=== PATIENT | female | born 1975 | race American Indian/Alaskan Native ===

== ENCOUNTER 2017-08-21 08:01 | Inpatient (IN) | payer OTHER ==
--- NOTE | 2017-08-21 08:44 | XRay Report ---
ROUTINE CHEST, TWO VIEWS: HISTORY: Shortness of breath. The trachea, heart, mediastinal contour, lung heredia and bony thorax are unremarkable. IMPRESSION: Unremarkable chest x-ray.
[2017-08-21 09:13] LABS: Mean Corpuscular HGB Conc 24 % (30-34); Platelet Count 412 K/mm3 (140-440); Red Blood Count 4.58 M/mm3 (3.65-5.03)
[2017-08-21 09:18] LABS: BUN/Creatinine Ratio 28; Blood Urea Nitrogen 22 mg/dL (7-17); Calcium 8.4 mg/dL (8.4-10.2); Hemolysis Index 6
[2017-08-21 09:22] LABS: Hemoglobin 7.4 gm/dl (10.1-14.3)
[2017-08-21 09:23] LABS: Hematocrit 30.7 % (30.3-42.9); Mean Corpuscular Hemoglobin 16 pg (28-32); Mean Corpuscular Volume 67 fl (79-97); Red Cell Distribution Width 21.4 % (13.2-15.2)
[2017-08-21 10:45] LABS: BUN/Creatinine Ratio 31; Blood Urea Nitrogen 22 mg/dL (7-17); Calcium 8.2 mg/dL (8.4-10.2); Hemolysis Index 3
[2017-08-21] MEDS ORDERED: NACL 0.9% 500 ML 500 ML IV ONE (21:30)
--- NOTE | 2017-08-21 21:38 | Emergency Department Report ---
ED Shortness of Breath HPI - General Chief Complaint: Dyspnea/Respdistress Stated Complaint: SOB Time Seen by Provider: 08/21/17 21:18 Source: patient Mode of arrival: Ambulatory Limitations: No Limitations - History of Present Illness Initial Comments: 41-year-old female with a past medical history CHF and hypertension presents to the hospital complaints of shortness of breath 3 days. Dyspnea on exertion with positive fatigue as well. Denies orthopnea or PND. Patient has been noncompliant with her CHF medication. Increased bilateral lower extremity edema. Patient complains of recent URI symptoms with cough productive of clear sputum. Taking [id number] medicine. No complaints of fever. Mild right- sided chest pain that started in the ED related to sleeping position. Patient denies recent travel, history of PE/DVT, and she denies taking control pills currently. Patient denies a known history of iron deficiency or anemia. Currently on mentstral cycle (day 3) uses 6 super pads per day - Related Data Allergies Allergy/AdvReac Type Severity Reaction Status Date / Time No Known Allergies Allergy Verified 08/22/17 02:04 ED Review of Systems ROS: Stated complaint: SOB Other details as noted in HPI Comment: All other systems reviewed and negative Other: Constitutional: No fevers chills Eyes: No eye pain visual changes ENT: No ear pain or throat pain Neck: Denies pain Respiratory: as per phpi Cardiovascular: Denies palpitations, syncope GI: Denies abdominal pain, nausea, vomiting, diarrhea, : Denies dysuria Musculoskeletal: Denies back pain Skin: Denies rash, lesions, erythema Neurologic: Denies headache, numbness, weakness Psychiatric: Denies suicidal ideation, hallucinations ED Past Medical Hx - Past Medical History Previous Medical History?: Yes Hx Hypertension: Yes Hx Congestive Heart Failure: Yes - Surgical History Past Surgical History?: Yes Additional Surgical History: Left knee surgery - Social History Smoking Status: Never Smoker Substance Use Type: Non Opiate Pain, Other ED Physical Exam - General Limitations: No Limitations - Other Other exam information: General: No limitations, patient is alert in no acute distress Head exam: Atraumatic, normocephalic Eyes exam: Normal appearance, pupils equal reactive to light, pale conjunctiva ENT: Moist mucous membrane, normal oropharynx Neck exam: Normal inspection, full range of motion, no meningismus nontender Respiratory exam: Mild tachypnea without accessory muscle use Cardiovascular: Mild tachycardia Abdomen: Soft, nondistended, and nontender, with normal bowel sounds, no rebound, or guarding Extremity: Full range of motion normal inspection no deformity, nonpitting bilateral lower extremity edema. it Back: Normal Inspection, full range of motion, no tenderness Neurologic: Alert, oriented x3, cranial nerves intact, no motor or sensory deficit Psychiatric: normal affect, normal mood Skin: Warm, dry, intact ED Course Vital Signs 08/21/17 08/21/17 08/21/17 08:06 14:28 19:33 Temperature 97.4 F L 98.4 F 98.0 F Pulse Rate 120 H 115 H 121 H Respiratory 22 16 20 Rate Blood Pressure 143/92 147/92 Blood Pressure 161/100 [Right] O2 Sat by Pulse 93 95 94 Oximetry 08/21/17 08/21/17 08/21/17 19:37 23:21 23:31 Temperature Pulse Rate 119 H 114 H Respiratory 20 22 25 H Rate Blood Pressure 118/79 Blood Pressure [Right] O2 Sat by Pulse 94 Oximetry 08/21/17 08/22/17 08/22/17 23:45 00:01 00:15 Temperature Pulse Rate 115 H 116 H 113 H Respiratory 26 H 24 26 H Rate Blood Pressure 118/79 118/79 118/79 Blood Pressure [Right] O2 Sat by Pulse Oximetry 08/22/17 08/22/17 08/22/17 00:31 00:45 01:01 Temperature Pulse Rate 114 H 111 H 114 H Respiratory 26 H 23 26 H Rate Blood Pressure 118/79 118/79 118/79 Blood Pressure [Right] O2 Sat by Pulse Oximetry 08/22/17 01:15 Temperature Pulse Rate 113 H Respiratory 25 H Rate Blood Pressure 131/87 Blood Pressure [Right] O2 Sat by Pulse Oximetry ED Medical Decision Making - Lab Data Result diagrams: 08/21/17 08:45 08/21/17 09:57 Lab Results 08/21/17 08/21/17 08/21/17 Range/Units 08:45 08:45 09:57 WBC 8.9 (4.5-11.0) K/mm3 RBC 4.58 (3.65-5.03) M/mm3 Hgb 7.4 L (10.1-14.3) gm/dl Hct 30.7 (30.3-42.9) % MCV 67 L (79-97) fl MCH 16 L (28-32) pg MCHC 24 L (30-34) % RDW 21.4 H (13.2-15.2) % Plt Count 412 (140-440) K/mm3 Lymph % (Auto) Contracting Manager [place] % (Auto) Contracting Manager Eos % (Auto) Contracting Manager Baso % (Auto) Contracting Manager Lymph # Contracting Manager [place] # Contracting Manager Eos # Contracting Manager Baso # Contracting Manager Seg Neutrophils % Contracting Manager Seg Neutrophils # Contracting Manager PT (12.2-14.9) Sec. INR (0.87-1.13) APTT (24.2-36.6) Sec. D-Dimer (0-234) ng/mlDDU Sodium 143 143 (137-145) mmol/L Potassium 3.9 3.9 (3.6-5.0) mmol/L Chloride 103.9 104.4 (98-107) mmol/L Carbon Dioxide 17 L 20 L (22-30) mmol/L Anion Gap 26 23 mmol/L BUN 22 H 22 H (7-17) mg/dL Creatinine 0.8 0.7 (0.7-1.2) mg/dL Estimated GFR > 60 > 60 ml/min BUN/Creatinine Ratio 28 31 % Glucose 141 H 94 (65-100) mg/dL Calcium 8.4 8.2 L (8.4-10.2) mg/dL Iron (37-170) ug/dL TIBC (250-450) mcg/dL % Saturation % Transferrin (192-382) mg/dl NT-Pro-B Natriuret Pep Cancelled HCG, Qual (Negative) Blood Type Antibody Screen Crossmatch 08/21/17 08/21/17 08/21/17 Range/Units 22:00 22:00 22:00 WBC (4.5-11.0) K/mm3 RBC (3.65-5.03) M/mm3 Hgb (10.1-14.3) gm/dl Hct (30.3-42.9) % MCV (79-97) fl MCH (28-32) pg MCHC (30-34) % RDW (13.2-15.2) % Plt Count (140-440) K/mm3 Lymph % (Auto) [place] % (Auto) Eos % (Auto) Baso % (Auto) Lymph # [place] # Eos # Baso # Seg Neutrophils % Seg Neutrophils # PT 13.9 (12.2-14.9) Sec. INR 1.02 (0.87-1.13) APTT 24.6 (24.2-36.6) Sec. D-Dimer 1471.89 H (0-234) ng/mlDDU Sodium (137-145) mmol/L Potassium (3.6-5.0) mmol/L Chloride (98-107) mmol/L Carbon Dioxide (22-30) mmol/L Anion Gap mmol/L BUN (7-17) mg/dL Creatinine (0.7-1.2) mg/dL Estimated GFR ml/min BUN/Creatinine Ratio % Glucose (65-100) mg/dL Calcium (8.4-10.2) mg/dL Iron 13 L (37-170) ug/dL TIBC 427 (250-450) mcg/dL % Saturation 3.04 % Transferrin 379 (192-382) mg/dl NT-Pro-B Natriuret Pep HCG, Qual Negative (Negative) Blood Type Antibody Screen Crossmatch 08/21/17 Range/Units 22:00 WBC (4.5-11.0) K/mm3 RBC (3.65-5.03) M/mm3 Hgb (10.1-14.3) gm/dl Hct (30.3-42.9) % MCV (79-97) fl MCH (28-32) pg MCHC (30-34) % RDW (13.2-15.2) % Plt Count (140-440) K/mm3 Lymph % (Auto) [place] % (Auto) Eos % (Auto) Baso % (Auto) Lymph # [place] # Eos # Baso # Seg Neutrophils % Seg Neutrophils # PT (12.2-14.9) Sec. INR (0.87-1.13) APTT (24.2-36.6) Sec. D-Dimer (0-234) ng/mlDDU Sodium (137-145) mmol/L Potassium (3.6-5.0) mmol/L Chloride (98-107) mmol/L Carbon Dioxide (22-30) mmol/L Anion Gap mmol/L BUN (7-17) mg/dL Creatinine (0.7-1.2) mg/dL Estimated GFR ml/min BUN/Creatinine Ratio % Glucose (65-100) mg/dL Calcium (8.4-10.2) mg/dL Iron (37-170) ug/dL TIBC (250-450) mcg/dL % Saturation % Transferrin (192-382) mg/dl NT-Pro-B Natriuret Pep HCG, Qual (Negative) Blood Type B POSITIVE Antibody Screen Negative Crossmatch See Detail - EKG Data -: EKG Interpreted by Me (RBBB) EKG shows normal: sinus rhythm, axis (21), QRS complexes (132), ST-T waves (lat t wave inv) Rate: tachycardia (113) - EKG Data When compared to previous EKG there are: previous EKG unavailable - Radiology Data Radiology results: report reviewed read by radiology Chest x-ray read by radiologist, no acute finding CT angiogram chest: extensive bilateral pulmonary emboli involving the lobar and segmental branches of the right lung and segmental branches of the left lung. Mild enlargement of the heart. Probable mild right ventricular strain. No focal consolidation or pleural effusion - Medical Decision Making Shortness of breath likely secondary to 2 contributing factors Pulmonary emboli extensive pulmonary emboli Signs of right heart strain on CT Signs of right bundle branch block on EKG Persistent tachypnea in the ED O2 saturation greater than 93% Lovenox ordered Anemia Currently on menstrual cycle with heavy vaginal bleeding reported but typical of her menstrual cycle Iron level low 2 Units PRBC ordered Plan to admit for further management - Differential Diagnosis anemia, CHF, PE, pneumonia, pneumothorax Critical Care Time: No Critical care attestation.: If time is entered above; I have spent that time in minutes in the direct care of this critically ill patient, excluding procedure time. ED Disposition Clinical Impression: Pulmonary emboli, Iron deficiency anemia, Dyspnea, Right heart enlargement Disposition: OP ADMIT IP TO THIS HOSP Is pt being admited?: Yes Condition: Stable Time of Disposition: 01:58 (Dr Mendoza/hosp)
[2017-08-21 22:48] LABS: % Iron Saturation 3.04 %
[2017-08-21 23:11] LABS: INR 1.02 (0.87-1.13)
[2017-08-21 23:12] LABS: Partial Thromboplastin Time 24.6 Sec. (24.2-36.6)
--- NOTE | 2017-08-22 01:58 | Cat Scan Report ---
FINAL REPORT EXAM: CT ANGIO CHEST HISTORY: sob, anemia, elevated ddimer COMPARISON: None available. TECHNIQUE: Contiguous axial images were obtained. Additional sagittal and coronal reformatted images were obtained. Administration of IV contrast given per institution protocol. Images submitted for interpretation. 100 cc Omnipaque [id number]. FINDINGS: Mild cardiac enlargement. Right ventricle measures 6.7 centimeters in thickness. Left ventricle 6.5 centimeters. Thoracic aorta is normal in caliber. No dissection. Multiple nonocclusive pulmonary emboli involving the lobar and segmental branches of the right upper, middle, and lower lobes. There also emboli involving the segmental branches of the left upper and left lower lobes. No pathologically enlarged intrathoracic or axillary lymph nodes. Tracheobronchial tree is patent. No focal consolidation or pleural effusion. Moderate large hiatal hernia. Bony thorax is grossly intact. IMPRESSION: Extensive bilateral pulmonary emboli involving the lobar and segmental branches the right lung and segmental branches of the left lung. Mild enlargement of the heart. Probable mild right ventricular strain. No focal consolidation or pleural effusion. Findings discussed with Dr. Musa on August 22, 2017 at 0155 hours EST.
[2017-08-22] MEDS ORDERED: LOVENOX SUB-Q ONE (01:59)
[2017-08-22] MEDS ORDERED: NACL 0.9% 1000 ML 1,000 ML ONE (02:00)
[2017-08-22] MEDS ORDERED: HEPARIN 10,000 UNITS/10 ML IV ONE (02:20)
[2017-08-22] MEDS ORDERED: HEPARIN/ 0.45% NACL-25,000 UNIT/500 ML 25,000 UNIT/500 ML BAG ONE (03:31)
[2017-08-22] MEDS ORDERED: HEPARIN 10,000 UNITS/10 ML ONE (03:31)
[2017-08-22] MEDS: HEPARIN/ 0.45% NACL-25,000 UNIT/500 ML 25,000 UNIT/500 ML BAG IV SCH ×2 (03:35→22:23)
[2017-08-22] MEDS ORDERED: MILK OF MAGNESIA PO PRN (04:02)
[2017-08-22] MEDS ORDERED: TYLENOL PO PRN (04:02)
[2017-08-22] MEDS ORDERED: DULCOLAX PR PRN (04:02)
[2017-08-22] MEDS ORDERED: ZOFRAN IV PRN (04:02)
[2017-08-22] MEDS ORDERED: MORPHINE IV PRN (04:02)
--- NOTE | 2017-08-22 04:24 | History and Physical Report ---
History of Present Illness Date of examination: 08/22/17 Date of admission: 08/22/17 03:01 History of present illness: 41-year-old brief history of hypertension, CHF was been off her medication for more than one year comes emergency room with complaints of shortness of breath 3 days, palpitation. She also complained of pain in her mid back, She described as dull pain, intermittent in nature less than 5 minutes, intensity 4/ 10, no radiation and she cannot identify exacerbating or relieving factors. She denies any recent travel, per control use Review Of Systems: Constitutional: no weight loss Ears, eyes, nose, mouth and throat: no nasal congestion, no nasal discharge, no sinus pressure, blurry vision, diplopia Neck: No neck pain or rigidity. Cardiovascular: No chest pain Respiratory: No cough Gastrointestinal: No abdominal pain, hematochezia Genitourinary : no dysuria, frequency , hematuria Musculoskeletal: no muscle ache Integumentary: no rash, no pruritis Neurological: no parathesias, focal weakness Endocrine: no cold or heat intolerance, no polyuria or polydipsia Hematologic/Lymphatic: no easy bruising, no easy bleeding, no gland swelling Allergic/Immunologic: no urticaria, no angioedema. PAST MEDICAL HISTORY:hypertension, CHF PAST SURGICAL HISTORY:knee surgery FAMILY HISTORY:hypertension SOCIAL HISTORY:Denies alcohol, tobacco, drugs Medications and Allergies Allergies Allergy/AdvReac Type Severity Reaction Status Date / Time No Known Allergies Allergy Verified 08/22/17 02:04 Active Meds: Active Medications Acetaminophen (Tylenol) 650 mg PO Q4H PRN PRN Reason: Pain MILD(1-3)/Fever >100.5/PEREZ Bisacodyl (Dulcolax) 10 mg IN QDAY PRN PRN Reason: Constipation unrelieved by MOM Heparin Sodium/Sodium Chloride (Heparin/ 0.45% Nacl-25,000 Unit/500 Ml) 25,000 unit in 500 mls @ 30 mls/hr IV TITR RUBA; 1,500 UNITS/HR PRN Reason: Protocol Last Admin: 08/22/17 03:35 Dose: 1,500 units/hr, 30 mls/hr Magnesium Hydroxide (Milk Of Magnesia) 30 ml PO Q4H PRN PRN Reason: Constipation Morphine Sulfate (Morphine) 2 mg IV Q4H PRN PRN Reason: Pain, Moderate (4-6) Ondansetron HCl (Zofran) 4 mg IV Q8H PRN PRN Reason: N/V unrelieved by Reglan Exam - Physical Exam Narrative exam: Gen. appearance: Patient lying in bed in no acute distress HEENT: Normocephalic/atraumatic, pupils equal round reactive to light, extra occular movement intact, no scleral icterus, no JVD or thyromegaly or nodule, neck is supple, mucous membrane moist, no erythema or exudate Heart: S1-S2, regular rate and rhythm Lungs: Clear to auscultation bilateral breathing comfortable Abdomen: Positive bowel sounds, nontender, nondistended, no organomegaly Extremities: No edema, cyanosis, clubbing Neuro:: Oriented 3 , cranial nerves II-12 intact, speech, motor intact Skin: No rash, nodules, warm dry - Constitutional Vitals: Temp Pulse Resp BP Pulse Ox 97.5 F L 111 H 23 142/94 97 08/22/17 02:13 08/22/17 03:40 08/22/17 03:40 08/22/17 03:40 08/22/17 03:40 Results - Labs CBC & Chem 7: 08/21/17 08:45 08/21/17 09:57 Labs: Abnormal lab results 08/21/17 08/21/17 08/21/17 Range/Units 08:45 08:45 09:57 Hgb 7.4 L (10.1-14.3) gm/dl MCV 67 L (79-97) fl MCH 16 L (28-32) pg MCHC 24 L (30-34) % RDW 21.4 H (13.2-15.2) % D-Dimer (0-234) ng/mlDDU Carbon Dioxide 17 L 20 L (22-30) mmol/L BUN 22 H 22 H (7-17) mg/dL Glucose 141 H (65-100) mg/dL Calcium 8.2 L (8.4-10.2) mg/dL Iron (37-170) ug/dL Crossmatch 08/21/17 08/21/17 08/21/17 Range/Units 22:00 22:00 22:00 Hgb (10.1-14.3) gm/dl MCV (79-97) fl MCH (28-32) pg MCHC (30-34) % RDW (13.2-15.2) % D-Dimer 1471.89 H (0-234) ng/mlDDU Carbon Dioxide (22-30) mmol/L BUN (7-17) mg/dL Glucose (65-100) mg/dL Calcium (8.4-10.2) mg/dL Iron 13 L (37-170) ug/dL Crossmatch See Detail - Imaging and Cardiology EKG: image reviewed CT scan - chest: report reviewed Assessment and Plan Assessment Acute pulmonary emboli Hypertension CHF, chronic Plan Transfuse red blood cells, start heparin drip Monitor hemoglobin, PT/INR check Doppler of the lower extremity
[2017-08-22 12:16] LABS: Mean Corpuscular HGB Conc 29 % (30-34); Platelet Count 290 K/mm3 (140-440); Red Blood Count 4.47 M/mm3 (3.65-5.03)
[2017-08-22 12:23] LABS: Hematocrit 29.4 % (30.3-42.9); Hemoglobin 8.4 gm/dl (10.1-14.3); Mean Corpuscular Hemoglobin 19 pg (28-32); Mean Corpuscular Volume 66 fl (79-97); Red Cell Distribution Width 26.1 % (13.2-15.2)
--- NOTE | 2017-08-22 14:55 | Event Note ---
Date: 08/22/17 Patient seen and examined. Admitted this morning with acute pulmonary emboli. We'll continue heparin drip. We'll do further testing to rule out possible GI bleed as her H&H is low. We'll continue current management and plan as dictated in HPI.
[2017-08-22] MEDS: FEOSOL PO SCH (22:22)
[2017-08-23 06:14] LABS: Mean Corpuscular HGB Conc 29 % (30-34); Platelet Count 277 K/mm3 (140-440); Red Blood Count 4.37 M/mm3 (3.65-5.03)
[2017-08-23 06:22] LABS: Hematocrit 28.3 % (30.3-42.9); Hemoglobin 8.2 gm/dl (10.1-14.3); Mean Corpuscular Hemoglobin 19 pg (28-32); Mean Corpuscular Volume 65 fl (79-97)
[2017-08-23 06:23] LABS: Red Cell Distribution Width 25.6 % (13.2-15.2)
[2017-08-23 06:36] LABS: BUN/Creatinine Ratio 25; Blood Urea Nitrogen 20 mg/dL (7-17); Calcium 7.7 mg/dL (8.4-10.2); Hemolysis Index 8
[2017-08-23 08:00] LABS: Anisocytosis 2+; Band Neutrophils # (Manual) 0.1 K/mm3; Hypochromasia 1+; Ovalocytes Few; Platelet Estimate Consistent w Auto; Target Cells Rare; Total Cells Counted 100
[2017-08-23] MEDS: FEOSOL PO SCH ×2 (12:19→21:27)
--- NOTE | 2017-08-23 13:20 | Progress Note ---
Assessment and Plan Acute b/l pulmonary emboli b/l popletial DVT Hypertension Anemia due to menorrhagia Plan Transfused red blood cells, cont heparin drip, Monitor hemoglobin, PT/INR, start coumadin consult pulmonary, if need SCD need hypercoagulable workup, will consult hematology Subjective Date of service: 08/23/17 Interval history: Pt seen and examined denies any chest pain or SOB Objective - Constitutional Vitals: Vital Signs - 12hr 08/23/17 08/23/17 08/23/17 04:40 07:42 09:26 Temperature 98.1 F 98.5 F Pulse Rate 98 H 101 H 98 H Respiratory 18 18 Rate Blood Pressure 144/86 114/70 Blood Pressure [Right] O2 Sat by Pulse 97 93 Oximetry 08/23/17 12:11 Temperature 97.4 F L Pulse Rate 96 H Respiratory Rate Blood Pressure Blood Pressure 126/91 [Right] O2 Sat by Pulse Oximetry General appearance: Present: no acute distress, obese - EENT Eyes: PERRL, EOM intact ENT: hearing intact, clear oral mucosa Ears: bilateral: normal - Neck Neck: supple, normal ROM - Respiratory Respiratory effort: normal Respiratory: bilateral: CTA - Cardiovascular Rhythm: regular Heart Sounds: Present: S1 & S2. Absent: gallop, rub Extremities: pulses intact, No edema, normal color, Full ROM - Gastrointestinal General gastrointestinal: Present: soft, non-tender, non-distended, normal bowel sounds - Integumentary Integumentary: clear, warm, dry - Musculoskeletal Musculoskeletal: 1, strength equal bilaterally - Neurologic Neurologic: moves all extremities - Psychiatric Psychiatric: memory intact, appropriate mood/affect, intact judgment & insight - Labs CBC & Chem 7: 08/23/17 05:00 08/23/17 05:00 Labs: Abnormal lab results 08/23/17 08/23/17 Range/Units 05:00 05:00 Hgb 8.2 L (10.1-14.3) gm/dl Hct 28.3 L (30.3-42.9) % MCV 65 L (79-97) fl MCH 19 L (28-32) pg MCHC 29 L (30-34) % RDW 25.6 H (13.2-15.2) % Seg Neuts % (Manual) 75.0 H (40.0-70.0) % Carbon Dioxide 20 L (22-30) mmol/L BUN 20 H (7-17) mg/dL Glucose 120 H (65-100) mg/dL Calcium 7.7 L (8.4-10.2) mg/dL - Imaging and cardiology CT scan - chest: report reviewed Venous US: report reviewed
[2017-08-23] MEDS ORDERED: COUMADIN PO SCH ×2 (17:00)
[2017-08-23] MEDS: HEPARIN/ 0.45% NACL-25,000 UNIT/500 ML 25,000 UNIT/500 ML BAG IV SCH (20:41)
[2017-08-24 05:48] LABS: Hematocrit 26.7 % (30.3-42.9)
[2017-08-24 06:01] LABS: INR 1.08 (0.87-1.13)
--- NOTE | 2017-08-24 14:23 | Progress Note ---
Assessment and Plan Assessment and plan: 41-year-old brief history of hypertension, CHF was been off her medication for more than one year comes emergency room with complaints of shortness of breath 3 days, palpitation. She also complained of pain in her mid back, She described as dull pain, intermittent in nature less than 5 minutes, intensity 4/ 10, no radiation and she cannot identify exacerbating or relieving factors. She denies any recent travel, per control use Acute pulmonary emboli Hypertension DVT CHF, chronic Hypercoagulopathy Plan Transfused red blood cells, start heparin drip Monitor hemoglobin, PT/INR Started on coumadin cardiology consult Hematology input noted. coagulation work up ongoing History Interval history: Patient seen and examined in no acute distress. Denies any chest pain, nausea, vomiting, mild shortness of breath Hospitalist Physical - Physical exam Narrative exam: VITAL SIGNS: Reviewed. GENERAL: The patient appeared well nourished and normally developed. Vital signs as documented. HEAD: No signs of head trauma. EYES: Pupils are equal. Extraocular motions intact. EARS: Hearing grossly intact. MOUTH: Oropharynx is normal. NECK: No adenopathy, no JVD. CHEST: Chest with clear breath sounds bilaterally. No wheezes, rales, or rhonchi. CARDIAC: Tachycardic rate. S1 and S2, without murmurs, gallops, or rubs. VASCULAR: No Edema. Peripheral pulses normal and equal in all extremities. ABDOMEN: Soft, without detectable tenderness. No sign of distention. No rebound or guarding, and no masses palpated. Bowel Sounds normal. MUSCULOSKELETAL: Good range of motion of all major joints. Extremities without clubbing, cyanosis or edema. NEUROLOGIC EXAM: Alert and oriented x 3. No focal sensory or strength deficits. Speech normal. Follows commands. PSYCHIATRIC: Mood normal. SKIN: No rash or lesions. - Constitutional Vitals: Temp Pulse Resp BP Pulse Ox 98.0 F 96 H 20 107/75 96 08/24/17 09:18 08/24/17 09:18 08/24/17 09:18 08/24/17 09:18 08/24/17 09:18 General appearance: Present: no acute distress, obese Results - Labs CBC & Chem 7: 08/24/17 05:42 08/23/17 05:00 Labs: Laboratory Last Values WBC 8.0 K/mm3 (4.5-11.0) 08/23/17 05:00 RBC 4.37 M/mm3 (3.65-5.03) 08/23/17 05:00 Hgb 8.0 gm/dl (10.1-14.3) L 08/24/17 05:42 Hct 26.7 % (30.3-42.9) L 08/24/17 05:42 MCV 65 fl (79-97) L 08/23/17 05:00 MCH 19 pg (28-32) L 08/23/17 05:00 MCHC 29 % (30-34) L 08/23/17 05:00 RDW 25.6 % (13.2-15.2) H 08/23/17 05:00 Plt Count 251 K/mm3 (140-440) 08/24/17 05:42 Lymph % (Auto) Delivery Driver 08/21/17 08:45 [place] % (Auto) Delivery Driver 08/21/17 08:45 Eos % (Auto) Delivery Driver 08/21/17 08:45 Baso % (Auto) Delivery Driver 08/21/17 08:45 Lymph # Delivery Driver 08/21/17 08:45 [place] # Delivery Driver 08/21/17 08:45 Eos # Delivery Driver 08/21/17 08:45 Baso # Delivery Driver 08/21/17 08:45 Add Manual Diff Complete 08/23/17 05:00 Total Counted 100 08/23/17 05:00 Seg Neutrophils % Delivery Driver 08/21/17 08:45 Seg Neuts % (Manual) 75.0 % (40.0-70.0) H 08/23/17 05:00 Band Neutrophils % 1.0 % 08/23/17 05:00 Lymphocytes % (Manual) 20.0 % (13.4-35.0) 08/23/17 05:00 Reactive Lymphs % (Man) 0 % 08/23/17 05:00 Monocytes % (Manual) 2.0 % (0.0-7.3) 08/23/17 05:00 Eosinophils % (Manual) 1.0 % (0.0-4.3) 08/23/17 05:00 Basophils % (Manual) 1.0 % (0.0-1.8) 08/23/17 05:00 Metamyelocytes % 0 % 08/23/17 05:00 Myelocytes % 0 % 08/23/17 05:00 Promyelocytes % 0 % 08/23/17 05:00 Blast Cells % 0 % 08/23/17 05:00 Nucleated RBC % Not Reportable 08/23/17 05:00 Seg Neutrophils # Delivery Driver 08/21/17 08:45 Seg Neutrophils # Man 6.0 K/mm3 (1.8-7.7) 08/23/17 05:00 Band Neutrophils # 0.1 K/mm3 08/23/17 05:00 Lymphocytes # (Manual) 1.6 K/mm3 (1.2-5.4) 08/23/17 05:00 Abs React Lymphs (Man) 0.0 K/mm3 08/23/17 05:00 Monocytes # (Manual) 0.2 K/mm3 (0.0-0.8) 08/23/17 05:00 Eosinophils # (Manual) 0.1 K/mm3 (0.0-0.4) 08/23/17 05:00 Basophils # (Manual) 0.1 K/mm3 (0.0-0.1) 08/23/17 05:00 Metamyelocytes # 0.0 K/mm3 08/23/17 05:00 Myelocytes # 0.0 K/mm3 08/23/17 05:00 Promyelocytes # 0.0 K/mm3 08/23/17 05:00 Blast Cells # 0.0 K/mm3 08/23/17 05:00 WBC Morphology Not Reportable 08/23/17 05:00 Hypersegmented Neuts Not Reportable 08/23/17 05:00 Hyposegmented Neuts Not Reportable 08/23/17 05:00 Hypogranular Neuts Not Reportable 08/23/17 05:00 Smudge Cells Not Reportable 08/23/17 05:00 Toxic Granulation Not Reportable 08/23/17 05:00 Toxic Vacuolation Not Reportable 08/23/17 05:00 Dohle Bodies Not Reportable 08/23/17 05:00 Pelger-Huet Anomaly Not Reportable 08/23/17 05:00 Frederick Rods Not Reportable 08/23/17 05:00 Platelet Estimate Consistent w auto 08/23/17 05:00 Clumped Platelets Not Reportable 08/23/17 05:00 Plt Clumps, EDTA Not Reportable 08/23/17 05:00 Large Platelets Not Reportable 08/23/17 05:00 Giant Platelets Not Reportable 08/23/17 05:00 Platelet Satelliting Not Reportable 08/23/17 05:00 Plt Morphology Comment Not Reportable 08/23/17 05:00 RBC Morphology Not Reportable 08/23/17 05:00 Dimorphic RBCs Not Reportable 08/23/17 05:00 Polychromasia Not Reportable 08/23/17 05:00 Hypochromasia 1+ 08/23/17 05:00 Poikilocytosis Not Reportable 08/23/17 05:00 Anisocytosis 2+ 08/23/17 05:00 Microcytosis 1+ 08/23/17 05:00 Macrocytosis Not Reportable 08/23/17 05:00 Spherocytes Not Reportable 08/23/17 05:00 Pappenheimer Bodies Not Reportable 08/23/17 05:00 Sickle Cells Not Reportable 08/23/17 05:00 Target Cells Rare 08/23/17 05:00 Tear Drop Cells Not Reportable 08/23/17 05:00 Ovalocytes Few 08/23/17 05:00 Helmet Cells Not Reportable 08/23/17 05:00 [place] Bodies Not Reportable 08/23/17 05:00 [place] Rings Not Reportable 08/23/17 05:00 [place] Cells Not Reportable 08/23/17 05:00 Bite Cells Not Reportable 08/23/17 05:00 Crenated Cell Not Reportable 08/23/17 05:00 Elliptocytes Not Reportable 08/23/17 05:00 Acanthocytes (Spur) Not Reportable 08/23/17 05:00 Rouleaux Not Reportable 08/23/17 05:00 Hemoglobin C Crystals Not Reportable 08/23/17 05:00 Schistocytes Not Reportable 08/23/17 05:00 Malaria parasites Not Reportable 08/23/17 05:00 Catarino Bodies Not Reportable 08/23/17 05:00 Hem Pathologist Commnt No 08/23/17 05:00 PT 14.6 Sec. (12.2-14.9) 08/24/17 05:42 INR 1.08 (0.87-1.13) 08/24/17 05:42 APTT 24.6 Sec. (24.2-36.6) 08/21/17 22:00 D-Dimer 1471.89 ng/mlDDU (0-234) H 08/21/17 22:00 Heparin Anti-Xa Level 0.31 U.I./ml (0.3-0.7) 08/23/17 18:14 Sodium 140 mmol/L (137-145) 08/23/17 05:00 Potassium 3.6 mmol/L (3.6-5.0) 08/23/17 05:00 Chloride 102.0 mmol/L (98-107) 08/23/17 05:00 Carbon Dioxide 20 mmol/L (22-30) L 08/23/17 05:00 Anion Gap 22 mmol/L 08/23/17 05:00 BUN 20 mg/dL (7-17) H 08/23/17 05:00 Creatinine 0.8 mg/dL (0.7-1.2) 08/23/17 05:00 Estimated GFR > 60 ml/min 08/23/17 05:00 BUN/Creatinine Ratio 25 % 08/23/17 05:00 Glucose 120 mg/dL (65-100) H 08/23/17 05:00 Calcium 7.7 mg/dL (8.4-10.2) L 08/23/17 05:00 Iron 13 ug/dL (37-170) L 08/21/17 22:00 TIBC 427 mcg/dL (250-450) 08/21/17 22:00 % Saturation 3.04 % 08/21/17 22:00 Transferrin 379 mg/dl (192-382) 08/21/17 22:00 NT-Pro-B Natriuret Pep 4524 pg/mL (0-450) H 08/21/17 08:45 HCG, Qual Negative (Negative) 08/21/17 22:00 Blood Type B POSITIVE 08/21/17 22:00 Antibody Screen Negative 08/21/17 22:00 Crossmatch See Detail 08/21/17 22:00
--- NOTE | 2017-08-24 16:57 | Consultation ---
History of Present Illness Consult date: 08/24/17 Reason for consult: dyspnea (PE), other History of present illness: History of present illness: 41-year-old brief history of hypertension, CHF was been off her medication for more than one year comes emergency room with complaints of shortness of breath 3 days, palpitation. She also complained of pain in her mid back, She described as dull pain, intermittent in nature less than 5 minutes, intensity 4/ 10, no radiation and she cannot identify exacerbating or relieving factors. She denies any recent travel, per control use Past History Past Medical History: No medical history Medications and Allergies Allergies Allergy/AdvReac Type Severity Reaction Status Date / Time No Known Allergies Allergy Verified 08/22/17 02:04 Home Medications Medication Instructions Recorded Confirmed Last Taken Type No Known Home Medications [No 08/22/17 08/22/17 Unknown History Reported Home Medications] Active Meds: Active Medications Acetaminophen (Tylenol) 650 mg PO Q4H PRN PRN Reason: Pain MILD(1-3)/Fever >100.5/PEREZ Bisacodyl (Dulcolax) 10 mg [place] QDAY PRN PRN Reason: Constipation unrelieved by MOM Ferrous Sulfate (Feosol) 325 mg PO BID [facility] Last Admin: 08/23/17 21:27 Dose: 325 mg Heparin Sodium/Sodium Chloride (Heparin/ 0.45% Nacl-25,000 Unit/500 Ml) 25,000 unit in 500 mls @ 30 mls/hr IV TITR RUBA; 1,500 UNITS/HR PRN Reason: Protocol Last Titration: 08/23/17 20:41 Dose: 1,400 units/hr, 28 mls/hr Magnesium Hydroxide (Milk Of Magnesia) 30 ml PO Q4H PRN PRN Reason: Constipation Morphine Sulfate (Morphine) 2 mg IV Q4H PRN PRN Reason: Pain, Moderate (4-6) Ondansetron HCl (Zofran) 4 mg IV Q8H PRN PRN Reason: N/V unrelieved by Joshlan Warfarin Sodium (Coumadin Pharmacy To Dose) 1 each PO PKCONSULT RUBA PRN Reason: Protocol Warfarin Sodium (Coumadin) 10 mg PO DAILY@1700 RUBA Review of Systems All systems: negative Cardiovascular: shortness of breath Physical Examination Vital signs: Vital Signs Temp Pulse Resp BP Pulse Ox 97.4 F L 120 H 22 143/92 93 08/21/17 08:06 08/21/17 08:06 08/21/17 08:06 08/21/17 08:06 08/21/17 08:06 General appearance: no acute distress, other Eyes: non-icteric (morbidly obese) ENT: oropharynx moist, other (crowded oropharynx) Neck: supple, no lymphadenopathy, no JVD Ascultation: Bilateral: clear Cardiovascular: regular rate and rhythm, other (gallop noted) Gastrointestinal: normoactive bowel sounds, soft, non-tender, non-distended, other (obesity) Integumentary: normal Extremities: no cyanosis, edema (trace edema left lower extremity) Musculoskeletal: no deformities Gait: other (not tested) normal mental status, non-focal exam Results - Laboratory Findings CBC and BMP: 08/24/17 05:42 08/23/17 05:00 PT/INR, D-dimer PT 14.6 Sec. (12.2-14.9) 08/24/17 05:42 INR 1.08 (0.87-1.13) 08/24/17 05:42 D-Dimer 1471.89 ng/mlDDU (0-234) H 08/21/17 22:00 Abnormal lab findings: Abnormal Labs 08/21/17 08/21/17 08/21/17 08:45 08:45 09:57 Hgb 7.4 L Hct MCV 67 L MCH 16 L MCHC 24 L RDW 21.4 H Seg Neuts % (Manual) D-Dimer Heparin Anti-Xa Level Carbon Dioxide 17 L 20 L BUN 22 H 22 H Glucose 141 H Calcium 8.2 L Iron NT-Pro-B Natriuret Pep 4524 H Crossmatch 08/21/17 08/21/17 08/21/17 22:00 22:00 22:00 Hgb Hct MCV MCH MCHC RDW Seg Neuts % (Manual) D-Dimer 1471.89 H Heparin Anti-Xa Level Carbon Dioxide BUN Glucose Calcium Iron 13 L NT-Pro-B Natriuret Pep Crossmatch See Detail 08/22/17 08/22/17 08/23/17 10:15 11:48 05:00 Hgb 8.4 L 8.2 L Hct 29.4 L 28.3 L MCV 66 L 65 L MCH 19 L 19 L MCHC 29 L 29 L RDW 26.1 H 25.6 H Seg Neuts % (Manual) 75.0 H D-Dimer Heparin Anti-Xa Level 0.88 H Carbon Dioxide BUN Glucose Calcium Iron NT-Pro-B Natriuret Pep Crossmatch 08/23/17 08/24/17 05:00 05:42 Hgb 8.0 L Hct 26.7 L MCV MCH MCHC RDW Seg Neuts % (Manual) D-Dimer Heparin Anti-Xa Level Carbon Dioxide 20 L BUN 20 H Glucose 120 H Calcium 7.7 L Iron NT-Pro-B Natriuret Pep Crossmatch - Diagnostic Findings CT scan - chest: report reviewed (bilateral extensive pulmonary emboli) Assessment and Plan Impression: Acute pulmonary embolism Rule out right heart strain (echocardiogram pending) Rule out DVT Morbid obesity rule out sleep apnea syndrome Recommendation: Continue with heparin switch over to Coumadin Consider hematology consult regarding hypercoagulable state Venous Doppler studies lower extremity to rule out DVT
[2017-08-24] MEDS: FEOSOL PO SCH ×2 (17:43→23:11)
[2017-08-24] MEDS: COUMADIN PO SCH (17:43)
--- NOTE | 2017-08-24 23:39 | Consultation ---
History of Present Illness - Reason for Consult Consult date: 08/24/17 PE/DVT Requesting physician: HILDA LENZ - History of Present Illness Thank you for this consult, patient seen/examined, record reviewed,,case d/w patient. She presented with PE/Dvt.. denies any obvious cause, except her sedentary life styles due to her job.she also stated that her mom, and her sister both have bread cancer.. she is already on coumadin. Past History Past Medical History: No medical history Medications and Allergies Allergies Allergy/AdvReac Type Severity Reaction Status Date / Time No Known Allergies Allergy Verified 08/22/17 02:04 Home Medications Medication Instructions Recorded Confirmed Last Taken Type No Known Home Medications [No 08/22/17 08/22/17 Unknown History Reported Home Medications] Active Meds: Active Medications Acetaminophen (Tylenol) 650 mg PO Q4H PRN PRN Reason: Pain MILD(1-3)/Fever >100.5/PEREZ Bisacodyl (Dulcolax) 10 mg ID QDAY PRN PRN Reason: Constipation unrelieved by MOM Ferrous Sulfate (Feosol) 325 mg PO BID [facility] Last Admin: 08/24/17 23:11 Dose: 325 mg Heparin Sodium/Sodium Chloride (Heparin/ 0.45% Nacl-25,000 Unit/500 Ml) 25,000 unit in 500 mls @ 30 mls/hr IV TITR RUBA; 1,500 UNITS/HR PRN Reason: Protocol Last Titration: 08/23/17 20:41 Dose: 1,400 units/hr, 28 mls/hr Magnesium Hydroxide (Milk Of Magnesia) 30 ml PO Q4H PRN PRN Reason: Constipation Morphine Sulfate (Morphine) 2 mg IV Q4H PRN PRN Reason: Pain, Moderate (4-6) Ondansetron HCl (Zofran) 4 mg IV Q8H PRN PRN Reason: N/V unrelieved by Reglan Warfarin Sodium (Coumadin Pharmacy To Dose) 1 each PO PKCONSULT RUBA PRN Reason: Protocol Warfarin Sodium (Coumadin) 10 mg PO DAILY@1700 [facility] Last Admin: 08/24/17 17:43 Dose: 10 mg Review of Systems Breasts: deferred Respiratory: shortness of breath Exam - Constitutional Vitals: Temp Pulse Resp BP Pulse Ox 98.3 F 99 H 18 143/92 97 08/24/17 20:05 08/24/17 20:05 08/24/17 20:05 08/24/17 20:05 08/24/17 20:05 General appearance: Present: mild distress, well-nourished - EENT Eyes: Present: PERRL ENT: hearing intact, clear oral mucosa - Neck Neck: Present: supple, normal ROM - Respiratory Respiratory: bilateral: diminished - Cardiovascular Heart Sounds: Present: S1 & S2. Absent: rub, click - Extremities Extremities: pulses symmetrical, No edema Peripheral Pulses: within normal limits - Abdominal General gastrointestinal: Present: soft, non-tender, non-distended, normal bowel sounds Female genitourinary: Present: deferred - Rectal Rectal Exam: deferred - Integumentary Integumentary: Present: clear, warm, dry - Musculoskeletal Musculoskeletal: gait normal, strength equal bilaterally - Psychiatric Psychiatric: appropriate mood/affect, intact judgment & insight - Neurologic Neurologic: CNII-XII intact, moves all extremities Results - Labs CBC & Chem 7: 08/24/17 05:42 08/23/17 05:00 Labs: Abnormal lab results 08/24/17 Range/Units 05:42 Hgb 8.0 L (10.1-14.3) gm/dl Hct 26.7 L (30.3-42.9) % Assessment and Plan - Patient Problems (1) Dyspnea Current Visit: Yes Status: Acute Plan to address problem: oxygen (2) Iron deficiency anemia Current Visit: Yes Status: Acute Plan to address problem: supportive/replacement. (3) Pulmonary emboli Current Visit: Yes Status: Acute Plan to address problem: see w/up/notes.
[2017-08-25 03:46] LABS: Heparin anti-factor XA 0.37 U.I./ml (0.3-0.7)
[2017-08-25] MEDS: HEPARIN/ 0.45% NACL-25,000 UNIT/500 ML 25,000 UNIT/500 ML BAG IV SCH ×2 (03:52→21:36)
[2017-08-25 03:59] LABS: Iron 205 ug/dL (37-170); Total Iron Binding Capacity 403 mcg/dL (250-450)
--- NOTE | 2017-08-25 09:59 | Consultation ---
History of Present Illness Consult date: 08/25/17 History of present illness: 41 YO morbidly obese woman who presented to hospital with acute onset of dyspnea and palpitations for the last several days. She was found to have LE DVT and PE. Anticoagulation with IV heparin and warfarin has been started. She was noted to have brief 8 beat run of non-sustained ventricular tachycadia yesterday. She has not had any episodes of syncope or pre-syncope. As far as she knows, she has not had any previous cardiac problems ECG reveals sinus tachycardia, RBBB, nonspecific T wave changes. Past History Past Medical History: No medical history Medications and Allergies Allergies Allergy/AdvReac Type Severity Reaction Status Date / Time No Known Allergies Allergy Verified 08/22/17 02:04 Home Medications Medication Instructions Recorded Confirmed Last Taken Type No Known Home Medications [No 08/22/17 08/22/17 Unknown History Reported Home Medications] Active Meds: Active Medications Acetaminophen (Tylenol) 650 mg PO Q4H PRN PRN Reason: Pain MILD(1-3)/Fever >100.5/PEREZ Bisacodyl (Dulcolax) 10 mg [place] QDAY PRN PRN Reason: Constipation unrelieved by MOM Ferrous Sulfate (Feosol) 325 mg PO BID [facility] Last Admin: 08/24/17 23:11 Dose: 325 mg Heparin Sodium/Sodium Chloride (Heparin/ 0.45% Nacl-25,000 Unit/500 Ml) 25,000 unit in 500 mls @ 30 mls/hr IV TITR RUBA; 1,500 UNITS/HR PRN Reason: Protocol Last Admin: 08/25/17 03:52 Dose: 1,400 units/hr, 28 mls/hr Magnesium Hydroxide (Milk Of Magnesia) 30 ml PO Q4H PRN PRN Reason: Constipation Morphine Sulfate (Morphine) 2 mg IV Q4H PRN PRN Reason: Pain, Moderate (4-6) Ondansetron HCl (Zofran) 4 mg IV Q8H PRN PRN Reason: N/V unrelieved by Beckie Warfarin Sodium (Coumadin Pharmacy To Dose) 1 each PO PKCONSULT RUBA PRN Reason: Protocol Warfarin Sodium (Coumadin) 10 mg PO DAILY@1700 [facility] Last Admin: 08/24/17 17:43 Dose: 10 mg Review of Systems All systems: negative (per hpi) Physical Examination Vital Signs Temp Pulse Resp BP Pulse Ox 97.4 F L 120 H 22 143/92 93 08/21/17 08:06 08/21/17 08:06 08/21/17 08:06 08/21/17 08:06 08/21/17 08:06 General appearance: obese HEENT: Positive: PERRL, EOMI Neck: Positive: trachea midline. Negative: JVD/HJR Cardiac: Positive: Reg Rate and Rhythm. Negative: Audible Murmur Lungs: Positive: clear to auscultation Neuro: Positive: Grossly Intact Abdomen: Positive: Soft, Active Bowel Sounds Extremities: Absent: edema Results 08/24/17 05:42 08/23/17 05:00 Coagulation 08/25/17 Range/Units 02:50 PT 13.7 (12.2-14.9) Sec. INR 1.00 (0.87-1.13) Assessment and Plan Bilateral PEs and DVT Non Sustained Ventricular Tachycardia Morbid Obesity Anemia Recommend: Continue anticoagulation. Transition to oral novel anticoagulant or warfarin Add low dose beta renan Monitor electrolytes and maintain in normal range. Check Echocardiogram
[2017-08-25] MEDS: FEOSOL PO SCH ×2 (11:08→21:36)
--- NOTE | 2017-08-25 13:57 | Vascular Lab Report ---
LOWER EXTREMITY VENOUS DUPLEX: REASON FOR EXAM: Pain and swelling of the lower extremities. COMMENTS ON THE RIGHT: Acute thrombus is seen in the peroneal veins of the calf. The remaining veins visualized are freely compressible without evidence of internal echogenicity. Spontaneous and phasic flow is present proximally. COMMENTS ON THE LEFT: Acute deep venous thrombosis is seen in the distal superficial femoral vein and popliteal vein. There is also acute thrombus in the peroneal veins of the calf. The remaining veins visualized are freely compressible without evidence of internal echogenicity. Spontaneous and phasic flow is present proximally. IMPRESSION: Acute deep venous thrombosis of the left distal superficial femoral vein and popliteal vein. Acute deep venous thrombosis of the peroneal veins of the calf bilaterally.
[2017-08-25] MEDS: TOPROL XL PO SCH (16:00)
[2017-08-25] MEDS: COUMADIN PO SCH (16:31)
--- NOTE | 2017-08-25 16:37 | Progress Note ---
Assessment and Plan Assessment and plan: 41-year-old brief history of hypertension, CHF was been off her medication for more than one year comes emergency room with complaints of shortness of breath 3 days, palpitation. She also complained of pain in her mid back, She described as dull pain, intermittent in nature less than 5 minutes, intensity 4/ 10, no radiation and she cannot identify exacerbating or relieving factors. She denies any recent travel, per control use Acute pulmonary emboli Hypertension DVT CHF, chronic PER PATIENT, AWAKE ECHO TO DETERMINE TYPE Morbid obesity Severe Anemia- S/P Transfusion Hypercoagulopathy Plan Transfused red blood cells, Continue heparin drip Recommend outpt colonscopy considering non provoked PE/DVT, family hx of cancer Monitor hemoglobin, PT/INR BB per cardiology Started on coumadin cardiology consult Hematology input noted. coagulation work up ongoing History Interval history: Patient seen and examined in no acute distress. Denies any chest pain, nausea, vomiting, No further shortness of breath Hospitalist Physical - Physical exam Narrative exam: VITAL SIGNS: Reviewed. GENERAL: The patient appeared well nourished and normally developed. Vital signs as documented. HEAD: No signs of head trauma. EYES: Pupils are equal. Extraocular motions intact. EARS: Hearing grossly intact. MOUTH: Oropharynx is normal. NECK: No adenopathy, no JVD. CHEST: Chest with clear breath sounds bilaterally. No wheezes, rales, or rhonchi. CARDIAC: normal rate and rhythm S1 and S2, without murmurs, gallops, or rubs. VASCULAR: No Edema. Peripheral pulses normal and equal in all extremities. ABDOMEN: Soft, without detectable tenderness. No sign of distention. No rebound or guarding, and no masses palpated. Bowel Sounds normal. MUSCULOSKELETAL: Good range of motion of all major joints. Extremities without clubbing, cyanosis or edema. NEUROLOGIC EXAM: Alert and oriented x 3. No focal sensory or strength deficits. Speech normal. Follows commands. PSYCHIATRIC: Mood normal. SKIN: No rash or lesions. - Constitutional Vitals: Temp Pulse Resp BP Pulse Ox 97.9 F 89 18 101/59 95 08/25/17 04:14 08/25/17 10:00 08/25/17 04:14 08/25/17 08:34 08/25/17 08:34 General appearance: Present: no acute distress, obese Results - Labs CBC & Chem 7: 08/24/17 05:42 08/23/17 05:00 Labs: Laboratory Last Values WBC 8.0 K/mm3 (4.5-11.0) 08/23/17 05:00 RBC 4.37 M/mm3 (3.65-5.03) 08/23/17 05:00 Hgb 8.0 gm/dl (10.1-14.3) L 08/24/17 05:42 Hct 26.7 % (30.3-42.9) L 08/24/17 05:42 MCV 65 fl (79-97) L 08/23/17 05:00 MCH 19 pg (28-32) L 08/23/17 05:00 MCHC 29 % (30-34) L 08/23/17 05:00 RDW 25.6 % (13.2-15.2) H 08/23/17 05:00 Plt Count 251 K/mm3 (140-440) 08/24/17 05:42 Lymph % (Auto) Vehicle Window Tinter 08/21/17 08:45 Ponce % (Auto) Vehicle Window Tinter 08/21/17 08:45 Eos % (Auto) Vehicle Window Tinter 08/21/17 08:45 Baso % (Auto) Vehicle Window Tinter 08/21/17 08:45 Lymph # Vehicle Window Tinter 08/21/17 08:45 Ponce # Vehicle Window Tinter 08/21/17 08:45 Eos # Vehicle Window Tinter 08/21/17 08:45 Baso # Vehicle Window Tinter 08/21/17 08:45 Add Manual Diff Complete 08/23/17 05:00 Total Counted 100 08/23/17 05:00 Seg Neutrophils % Vehicle Window Tinter 08/21/17 08:45 Seg Neuts % (Manual) 75.0 % (40.0-70.0) H 08/23/17 05:00 Band Neutrophils % 1.0 % 08/23/17 05:00 Lymphocytes % (Manual) 20.0 % (13.4-35.0) 08/23/17 05:00 Reactive Lymphs % (Man) 0 % 08/23/17 05:00 Monocytes % (Manual) 2.0 % (0.0-7.3) 08/23/17 05:00 Eosinophils % (Manual) 1.0 % (0.0-4.3) 08/23/17 05:00 Basophils % (Manual) 1.0 % (0.0-1.8) 08/23/17 05:00 Metamyelocytes % 0 % 08/23/17 05:00 Myelocytes % 0 % 08/23/17 05:00 Promyelocytes % 0 % 08/23/17 05:00 Blast Cells % 0 % 08/23/17 05:00 Nucleated RBC % Not Reportable 08/23/17 05:00 Seg Neutrophils # Vehicle Window Tinter 08/21/17 08:45 Seg Neutrophils # Man 6.0 K/mm3 (1.8-7.7) 08/23/17 05:00 Band Neutrophils # 0.1 K/mm3 08/23/17 05:00 Lymphocytes # (Manual) 1.6 K/mm3 (1.2-5.4) 08/23/17 05:00 Abs React Lymphs (Man) 0.0 K/mm3 08/23/17 05:00 Monocytes # (Manual) 0.2 K/mm3 (0.0-0.8) 08/23/17 05:00 Eosinophils # (Manual) 0.1 K/mm3 (0.0-0.4) 08/23/17 05:00 Basophils # (Manual) 0.1 K/mm3 (0.0-0.1) 08/23/17 05:00 Metamyelocytes # 0.0 K/mm3 08/23/17 05:00 Myelocytes # 0.0 K/mm3 08/23/17 05:00 Promyelocytes # 0.0 K/mm3 08/23/17 05:00 Blast Cells # 0.0 K/mm3 08/23/17 05:00 WBC Morphology Not Reportable 08/23/17 05:00 Hypersegmented Neuts Not Reportable 08/23/17 05:00 Hyposegmented Neuts Not Reportable 08/23/17 05:00 Hypogranular Neuts Not Reportable 08/23/17 05:00 Smudge Cells Not Reportable 08/23/17 05:00 Toxic Granulation Not Reportable 08/23/17 05:00 Toxic Vacuolation Not Reportable 08/23/17 05:00 Dohle Bodies Not Reportable 08/23/17 05:00 Pelger-Huet Anomaly Not Reportable 08/23/17 05:00 Frederick Rods Not Reportable 08/23/17 05:00 Platelet Estimate Consistent w auto 08/23/17 05:00 Clumped Platelets Not Reportable 08/23/17 05:00 Plt Clumps, EDTA Not Reportable 08/23/17 05:00 Large Platelets Not Reportable 08/23/17 05:00 Giant Platelets Not Reportable 08/23/17 05:00 Platelet Satelliting Not Reportable 08/23/17 05:00 Plt Morphology Comment Not Reportable 08/23/17 05:00 RBC Morphology Not Reportable 08/23/17 05:00 Dimorphic RBCs Not Reportable 08/23/17 05:00 Polychromasia Not Reportable 08/23/17 05:00 Hypochromasia 1+ 08/23/17 05:00 Poikilocytosis Not Reportable 08/23/17 05:00 Anisocytosis 2+ 08/23/17 05:00 Microcytosis 1+ 08/23/17 05:00 Macrocytosis Not Reportable 08/23/17 05:00 Spherocytes Not Reportable 08/23/17 05:00 Pappenheimer Bodies Not Reportable 08/23/17 05:00 Sickle Cells Not Reportable 08/23/17 05:00 Target Cells Rare 08/23/17 05:00 Tear Drop Cells Not Reportable 08/23/17 05:00 Ovalocytes Few 08/23/17 05:00 Helmet Cells Not Reportable 08/23/17 05:00 [place] Bodies Not Reportable 08/23/17 05:00 [place] Rings Not Reportable 08/23/17 05:00 Sin Cells Not Reportable 08/23/17 05:00 Bite Cells Not Reportable 08/23/17 05:00 Crenated Cell Not Reportable 08/23/17 05:00 Elliptocytes Not Reportable 08/23/17 05:00 Acanthocytes (Spur) Not Reportable 08/23/17 05:00 Rouleaux Not Reportable 08/23/17 05:00 Hemoglobin C Crystals Not Reportable 08/23/17 05:00 Schistocytes Not Reportable 08/23/17 05:00 Malaria parasites Not Reportable 08/23/17 05:00 Catarino Bodies Not Reportable 08/23/17 05:00 Hem Pathologist Commnt No 08/23/17 05:00 PT 13.7 Sec. (12.2-14.9) 08/25/17 02:50 INR 1.00 (0.87-1.13) 08/25/17 02:50 APTT 24.6 Sec. (24.2-36.6) 08/21/17 22:00 D-Dimer 1471.89 ng/mlDDU (0-234) H 08/21/17 22:00 Heparin Anti-Xa Level 0.37 U.I./ml (0.3-0.7) 08/25/17 02:50 Sodium 140 mmol/L (137-145) 08/23/17 05:00 Potassium 3.6 mmol/L (3.6-5.0) 08/23/17 05:00 Chloride 102.0 mmol/L (98-107) 08/23/17 05:00 Carbon Dioxide 20 mmol/L (22-30) L 08/23/17 05:00 Anion Gap 22 mmol/L 08/23/17 05:00 BUN 20 mg/dL (7-17) H 08/23/17 05:00 Creatinine 0.8 mg/dL (0.7-1.2) 08/23/17 05:00 Estimated GFR > 60 ml/min 08/23/17 05:00 BUN/Creatinine Ratio 25 % 08/23/17 05:00 Glucose 120 mg/dL (65-100) H 08/23/17 05:00 Calcium 7.7 mg/dL (8.4-10.2) L 08/23/17 05:00 Iron 205 ug/dL (37-170) H 08/25/17 02:50 TIBC 403 mcg/dL (250-450) 08/25/17 02:50 % Saturation 3.04 % 08/21/17 22:00 Transferrin 379 mg/dl (192-382) 08/21/17 22:00 Ferritin 12.8 ng/mL (13.0-400.0) L 08/25/17 02:50 C-Reactive Protein 1.20 mg/dL (0.00-1.30) 08/25/17 02:50 NT-Pro-B Natriuret Pep 4524 pg/mL (0-450) H 08/21/17 08:45 HCG, Qual Negative (Negative) 08/21/17 22:00 Blood Type B POSITIVE 08/21/17 22:00 Antibody Screen Negative 08/21/17 22:00 Crossmatch See Detail 08/21/17 22:00
--- NOTE | 2017-08-25 17:18 | Progress Note ---
Assessment and Plan Impression: Acute pulmonary embolism Rule out right heart strain (echocardiogram pending) Rule out DVT Morbid obesity rule out sleep apnea syndrome Recommendation: Continue with heparin switch over to Coumadin Consider hematology consult regarding hypercoagulable state Venous Doppler studies lower extremity to rule out DVT Subjective Date of service: 08/25/17 Interval history: Follow-up pulmonary embolism Objective Vital Signs - 12hr 08/25/17 08/25/17 08:34 10:00 Pulse Rate 85 89 Blood Pressure 101/59 O2 Sat by Pulse 95 Oximetry Constitutional: no acute distress, other Eyes: non-icteric (morbidly obese) ENT: oropharynx moist, other (crowded oropharynx) Neck: supple, no lymphadenopathy, no JVD Ascultation: Bilateral: clear Cardiovascular: regular rate and rhythm, other (gallop noted) Gastrointestinal: normoactive bowel sounds, soft, non-tender, non-distended, other (obesity) Integumentary: normal Extremities: no cyanosis, edema (trace edema left lower extremity) Neurologic: normal mental status, non-focal exam CBC and BMP: 08/24/17 05:42 08/23/17 05:00 ABG, PT/INR, D-dimer: PT/INR, D-dimer PT 13.7 Sec. (12.2-14.9) 08/25/17 02:50 INR 1.00 (0.87-1.13) 08/25/17 02:50 D-Dimer 1471.89 ng/mlDDU (0-234) H 08/21/17 22:00 Abnormal lab findings: Abnormal Labs 08/21/17 08/21/17 08/21/17 08:45 08:45 09:57 Hgb 7.4 L Hct MCV 67 L MCH 16 L MCHC 24 L RDW 21.4 H Seg Neuts % (Manual) D-Dimer Heparin Anti-Xa Level Carbon Dioxide 17 L 20 L BUN 22 H 22 H Glucose 141 H Calcium 8.2 L Iron Ferritin NT-Pro-B Natriuret Pep 4524 H Crossmatch 08/21/17 08/21/17 08/21/17 22:00 22:00 22:00 Hgb Hct MCV MCH MCHC RDW Seg Neuts % (Manual) D-Dimer 1471.89 H Heparin Anti-Xa Level Carbon Dioxide BUN Glucose Calcium Iron 13 L Ferritin NT-Pro-B Natriuret Pep Crossmatch See Detail 08/22/17 08/22/17 08/23/17 10:15 11:48 05:00 Hgb 8.4 L 8.2 L Hct 29.4 L 28.3 L MCV 66 L 65 L MCH 19 L 19 L MCHC 29 L 29 L RDW 26.1 H 25.6 H Seg Neuts % (Manual) 75.0 H D-Dimer Heparin Anti-Xa Level 0.88 H Carbon Dioxide BUN Glucose Calcium Iron Ferritin NT-Pro-B Natriuret Pep Crossmatch 08/23/17 08/24/17 08/25/17 05:00 05:42 02:50 Hgb 8.0 L Hct 26.7 L MCV MCH MCHC RDW Seg Neuts % (Manual) D-Dimer Heparin Anti-Xa Level Carbon Dioxide 20 L BUN 20 H Glucose 120 H Calcium 7.7 L Iron 205 H Ferritin NT-Pro-B Natriuret Pep Crossmatch 08/25/17 02:50 Hgb Hct MCV MCH MCHC RDW Seg Neuts % (Manual) D-Dimer Heparin Anti-Xa Level Carbon Dioxide BUN Glucose Calcium Iron Ferritin 12.8 L NT-Pro-B Natriuret Pep Crossmatch
--- NOTE | 2017-08-25 22:18 | Progress Note ---
Assessment and Plan - Patient Problems (1) Dyspnea Current Visit: Yes Status: Acute Plan to address problem: oxygen (2) Iron deficiency anemia Current Visit: Yes Status: Acute Plan to address problem: supportive/replacement. (3) Pulmonary emboli Current Visit: Yes Status: Acute Plan to address problem: see w/up/notes. See notes above. Subjective Date of service: 08/25/17 Interval history: Patient seen/examined, record reviewed, case d/w her. W/up labs drawn today, results may take up to a week , but patient can come to the office for discussion.She may be able to go with LMWH + coumadin, and follow up in the office. Objective - Constitutional Vitals: Vital Signs - 12hr 08/25/17 08/25/17 17:31 20:01 Temperature 98.4 F Pulse Rate 91 H 84 Respiratory 20 Rate Blood Pressure 129/87 O2 Sat by Pulse 100 98 Oximetry General appearance: Present: no acute distress, well-nourished - EENT Eyes: PERRL, EOM intact ENT: hearing intact, clear oral mucosa Ears: bilateral: normal - Neck Neck: supple, normal ROM - Respiratory Respiratory effort: normal Respiratory: bilateral: CTA - Breasts Breasts: deferred - Cardiovascular Rhythm: regular Heart Sounds: Present: S1 & S2. Absent: gallop, rub Extremities: pulses intact, No edema, normal color, Full ROM - Gastrointestinal General gastrointestinal: Present: soft, non-tender, non-distended, normal bowel sounds Rectal Exam: deferred - Genitourinary Female genitourinary: deferred - Integumentary Integumentary: clear, warm, dry - Musculoskeletal Musculoskeletal: 1, strength equal bilaterally - Neurologic Neurologic: moves all extremities - Psychiatric Psychiatric: memory intact, appropriate mood/affect, intact judgment & insight - Labs CBC & Chem 7: 08/24/17 05:42 08/23/17 05:00 Labs: Abnormal lab results 08/25/17 08/25/17 Range/Units 02:50 02:50 Iron 205 H (37-170) ug/dL Ferritin 12.8 L (13.0-400.0) ng/mL
[2017-08-26 07:01] LABS: Mean Corpuscular HGB Conc 29 % (30-34); Platelet Count 222 K/mm3 (140-440); Red Blood Count 4.01 M/mm3 (3.65-5.03)
[2017-08-26 07:03] LABS: Hematocrit 26.8 % (30.3-42.9); Hemoglobin 7.7 gm/dl (10.1-14.3); Mean Corpuscular Hemoglobin 19 pg (28-32); Mean Corpuscular Volume 67 fl (79-97); Red Cell Distribution Width 27.2 % (13.2-15.2)
[2017-08-26 07:13] LABS: INR 1.24 (0.87-1.13)
[2017-08-26 07:14] LABS: Heparin anti-factor XA 0.32 U.I./ml (0.3-0.7)
--- NOTE | 2017-08-26 08:45 | Progress Note ---
Assessment and Plan 41 y/o female with morbid obesity, admitted with worsening shortness of breath and back pain. Found to have pulmonary embolism. 1. Follow up heme recs 2. Anticoagulation and duration per heme 3. Pulm status appears stable 4. Will see as needed. Subjective Date of service: 08/26/17 Interval history: No acute events. Heme following now. Remains on room air and stable. Dopplers not done yet. Still on heparin and coumadin. Objective Vital Signs - 12hr 08/25/17 08/26/17 08/26/17 22:00 00:49 05:15 Temperature 97.8 F 97.6 F Pulse Rate 85 83 80 Respiratory 19 20 Rate Blood Pressure 124/83 107/65 O2 Sat by Pulse 96 96 Oximetry Constitutional: no acute distress, other Eyes: non-icteric (morbidly obese) ENT: oropharynx moist, other (crowded oropharynx) Neck: supple, no lymphadenopathy, no JVD Ascultation: Bilateral: clear Cardiovascular: regular rate and rhythm, other (gallop noted) Gastrointestinal: normoactive bowel sounds, soft, non-tender, non-distended, other (obesity) Integumentary: normal Extremities: no cyanosis, edema (trace edema left lower extremity) Neurologic: normal mental status, non-focal exam CBC and BMP: 08/26/17 05:50 08/23/17 05:00 ABG, PT/INR, D-dimer: PT/INR, D-dimer PT 16.3 Sec. (12.2-14.9) H 08/26/17 05:50 INR 1.24 (0.87-1.13) H 08/26/17 05:50 D-Dimer 1471.89 ng/mlDDU (0-234) H 08/21/17 22:00 Abnormal lab findings: Abnormal Labs 08/21/17 08/21/17 08/21/17 08:45 08:45 09:57 Hgb 7.4 L Hct MCV 67 L MCH 16 L MCHC 24 L RDW 21.4 H Seg Neuts % (Manual) PT INR D-Dimer Heparin Anti-Xa Level Carbon Dioxide 17 L 20 L BUN 22 H 22 H Glucose 141 H Calcium 8.2 L Iron Ferritin NT-Pro-B Natriuret Pep 4524 H Crossmatch 08/21/17 08/21/17 08/21/17 22:00 22:00 22:00 Hgb Hct MCV MCH MCHC RDW Seg Neuts % (Manual) PT INR D-Dimer 1471.89 H Heparin Anti-Xa Level Carbon Dioxide BUN Glucose Calcium Iron 13 L Ferritin NT-Pro-B Natriuret Pep Crossmatch See Detail 08/22/17 08/22/17 08/23/17 10:15 11:48 05:00 Hgb 8.4 L 8.2 L Hct 29.4 L 28.3 L MCV 66 L 65 L MCH 19 L 19 L MCHC 29 L 29 L RDW 26.1 H 25.6 H Seg Neuts % (Manual) 75.0 H PT INR D-Dimer Heparin Anti-Xa Level 0.88 H Carbon Dioxide BUN Glucose Calcium Iron Ferritin NT-Pro-B Natriuret Pep Crossmatch 08/23/17 08/24/17 08/25/17 05:00 05:42 02:50 Hgb 8.0 L Hct 26.7 L MCV MCH MCHC RDW Seg Neuts % (Manual) PT INR D-Dimer Heparin Anti-Xa Level Carbon Dioxide 20 L BUN 20 H Glucose 120 H Calcium 7.7 L Iron 205 H Ferritin NT-Pro-B Natriuret Pep Crossmatch 08/25/17 08/26/17 08/26/17 02:50 05:50 05:50 Hgb 7.7 L Hct 26.8 L MCV 67 L MCH 19 L MCHC 29 L RDW 27.2 H Seg Neuts % (Manual) PT 16.3 H INR 1.24 H D-Dimer Heparin Anti-Xa Level Carbon Dioxide BUN Glucose Calcium Iron Ferritin 12.8 L NT-Pro-B Natriuret Pep Crossmatch
[2017-08-26] MEDS: TOPROL XL PO SCH (10:16)
[2017-08-26] MEDS: FEOSOL PO SCH (10:16)
--- NOTE | 2017-08-26 11:22 | Progress Note ---
Assessment and Plan Bilateral PEs and DVT on IV heparin and warfarin Non Sustained Ventricular Tachycardia pt remained asymptomatic on low dose toprol xl Morbid Obesity Anemia Echo results are pending. Recommend: Monitor electrolytes and maintain in normal range. Subjective Date of service: 08/26/17 Interval history: Patient denies chest pain. Reports her breathing is better. Objective Vital Signs Temp Pulse Resp BP Pulse Ox 08/26/17 10:16 81 142/82 08/26/17 07:39 98.2 F 81 20 142/91 96 08/26/17 05:15 97.6 F 80 20 107/65 96 08/26/17 00:49 97.8 F 83 19 124/83 96 08/25/17 22:00 85 08/25/17 20:01 98.4 F 84 20 129/87 98 08/25/17 17:31 91 H 100 - Physical Examination General: No Apparent Distress HEENT: Positive: PERRL Neck: Positive: trachea midline Cardiac: Positive: Reg Rate and Rhythm Neuro: Positive: Grossly Intact Abdomen: Positive: Soft, Active Bowel Sounds Extremities: Absent: edema - Labs and Meds Coagulation 08/26/17 Range/Units 05:50 PT 16.3 H (12.2-14.9) Sec. INR 1.24 H (0.87-1.13) CBC 08/26/17 Range/Units 05:50 WBC 6.3 (4.5-11.0) K/mm3 RBC 4.01 (3.65-5.03) M/mm3 Hgb 7.7 L (10.1-14.3) gm/dl Hct 26.8 L (30.3-42.9) % Plt Count 222 (140-440) K/mm3 - Imaging and Cardiology EKG: image reviewed
--- NOTE | 2017-08-26 15:50 | Progress Note ---
Assessment and Plan Assessment and plan: 41-year-old brief history of hypertension, CHF was been off her medication for more than one year comes emergency room with complaints of shortness of breath 3 days, palpitation. She also complained of pain in her mid back, She described as dull pain, intermittent in nature less than 5 minutes, intensity 4/ 10, no radiation and she cannot identify exacerbating or relieving factors. She denies any recent travel, per control use Acute pulmonary emboli Hypertension DVT CHF, chronic combined biventricular failure EF 25% Severe Pulmonary artery Hypertension Cor pulmonale Dilated cardiomyopathy Morbid obesity Severe Anemia- S/P Transfusion Hypercoagulopathy Plan Transfused red blood cells, Continue heparin drip Monitor his of his closely mildly drifted down may require further transfusion. Recommend outpt colonscopy considering non provoked PE/DVT, family hx of cancer BB AND AFTERLOAD Monitor hemoglobin, PT/INR BB per cardiology Started on coumadin cardiology consult Hematology input noted. coagulation work up ongoing History Interval history: Patient seen and examined. Denies any chest pain, nausea, vomiting, No further shortness of breath. CT of the chair. In no acute distress Hospitalist Physical - Physical exam Narrative exam: VITAL SIGNS: Reviewed. GENERAL: The patient appeared well nourished and normally developed. Vital signs as documented. HEAD: No signs of head trauma. EYES: Pupils are equal. Extraocular motions intact. EARS: Hearing grossly intact. MOUTH: Oropharynx is normal. NECK: No adenopathy, no JVD. CHEST: Chest with clear breath sounds bilaterally. No wheezes, rales, or rhonchi. CARDIAC: normal rate and rhythm S1 and S2, without murmurs, gallops, or rubs. VASCULAR: No Edema. Peripheral pulses normal and equal in all extremities. ABDOMEN: Soft, without detectable tenderness. No sign of distention. No rebound or guarding, and no masses palpated. Bowel Sounds normal. MUSCULOSKELETAL: Good range of motion of all major joints. Extremities without clubbing, cyanosis or edema. NEUROLOGIC EXAM: Alert and oriented x 3. No focal sensory or strength deficits. Speech normal. Follows commands. PSYCHIATRIC: Mood normal. SKIN: No rash or lesions. - Constitutional Vitals: Temp Pulse Resp BP Pulse Ox 98.3 F 86 20 122/77 97 08/26/17 14:17 08/26/17 14:17 08/26/17 14:17 08/26/17 14:17 08/26/17 14:17 General appearance: Present: no acute distress, well-nourished Results - Labs CBC & Chem 7: 08/26/17 05:50 08/23/17 05:00 Labs: Laboratory Last Values WBC 6.3 K/mm3 (4.5-11.0) 08/26/17 05:50 RBC 4.01 M/mm3 (3.65-5.03) 08/26/17 05:50 Hgb 7.7 gm/dl (10.1-14.3) L 08/26/17 05:50 Hct 26.8 % (30.3-42.9) L 08/26/17 05:50 MCV 67 fl (79-97) L 08/26/17 05:50 MCH 19 pg (28-32) L 08/26/17 05:50 MCHC 29 % (30-34) L 08/26/17 05:50 RDW 27.2 % (13.2-15.2) H 08/26/17 05:50 Plt Count 222 K/mm3 (140-440) 08/26/17 05:50 Lymph % (Auto) Pluck Trimmer 08/21/17 08:45 [place] % (Auto) Pluck Trimmer 08/21/17 08:45 Eos % (Auto) Pluck Trimmer 08/21/17 08:45 Baso % (Auto) Pluck Trimmer 08/21/17 08:45 Lymph # Pluck Trimmer 08/21/17 08:45 [place] # Pluck Trimmer 08/21/17 08:45 Eos # Pluck Trimmer 08/21/17 08:45 Baso # Pluck Trimmer 08/21/17 08:45 Add Manual Diff Complete 08/23/17 05:00 Total Counted 100 08/23/17 05:00 Seg Neutrophils % Pluck Trimmer 08/21/17 08:45 Seg Neuts % (Manual) 75.0 % (40.0-70.0) H 08/23/17 05:00 Band Neutrophils % 1.0 % 08/23/17 05:00 Lymphocytes % (Manual) 20.0 % (13.4-35.0) 08/23/17 05:00 Reactive Lymphs % (Man) 0 % 08/23/17 05:00 Monocytes % (Manual) 2.0 % (0.0-7.3) 08/23/17 05:00 Eosinophils % (Manual) 1.0 % (0.0-4.3) 08/23/17 05:00 Basophils % (Manual) 1.0 % (0.0-1.8) 08/23/17 05:00 Metamyelocytes % 0 % 08/23/17 05:00 Myelocytes % 0 % 08/23/17 05:00 Promyelocytes % 0 % 08/23/17 05:00 Blast Cells % 0 % 08/23/17 05:00 Nucleated RBC % Not Reportable 08/23/17 05:00 Seg Neutrophils # Pluck Trimmer 08/21/17 08:45 Seg Neutrophils # Man 6.0 K/mm3 (1.8-7.7) 08/23/17 05:00 Band Neutrophils # 0.1 K/mm3 08/23/17 05:00 Lymphocytes # (Manual) 1.6 K/mm3 (1.2-5.4) 08/23/17 05:00 Abs React Lymphs (Man) 0.0 K/mm3 08/23/17 05:00 Monocytes # (Manual) 0.2 K/mm3 (0.0-0.8) 08/23/17 05:00 Eosinophils # (Manual) 0.1 K/mm3 (0.0-0.4) 08/23/17 05:00 Basophils # (Manual) 0.1 K/mm3 (0.0-0.1) 08/23/17 05:00 Metamyelocytes # 0.0 K/mm3 08/23/17 05:00 Myelocytes # 0.0 K/mm3 08/23/17 05:00 Promyelocytes # 0.0 K/mm3 08/23/17 05:00 Blast Cells # 0.0 K/mm3 08/23/17 05:00 WBC Morphology Not Reportable 08/23/17 05:00 Hypersegmented Neuts Not Reportable 08/23/17 05:00 Hyposegmented Neuts Not Reportable 08/23/17 05:00 Hypogranular Neuts Not Reportable 08/23/17 05:00 Smudge Cells Not Reportable 08/23/17 05:00 Toxic Granulation Not Reportable 08/23/17 05:00 Toxic Vacuolation Not Reportable 08/23/17 05:00 Dohle Bodies Not Reportable 08/23/17 05:00 Pelger-Huet Anomaly Not Reportable 08/23/17 05:00 Frederick Rods Not Reportable 08/23/17 05:00 Platelet Estimate Consistent w auto 08/23/17 05:00 Clumped Platelets Not Reportable 08/23/17 05:00 Plt Clumps, EDTA Not Reportable 08/23/17 05:00 Large Platelets Not Reportable 08/23/17 05:00 Giant Platelets Not Reportable 08/23/17 05:00 Platelet Satelliting Not Reportable 08/23/17 05:00 Plt Morphology Comment Not Reportable 08/23/17 05:00 RBC Morphology Not Reportable 08/23/17 05:00 Dimorphic RBCs Not Reportable 08/23/17 05:00 Polychromasia Not Reportable 08/23/17 05:00 Hypochromasia 1+ 08/23/17 05:00 Poikilocytosis Not Reportable 08/23/17 05:00 Anisocytosis 2+ 08/23/17 05:00 Microcytosis 1+ 08/23/17 05:00 Macrocytosis Not Reportable 08/23/17 05:00 Spherocytes Not Reportable 08/23/17 05:00 Pappenheimer Bodies Not Reportable 08/23/17 05:00 Sickle Cells Not Reportable 08/23/17 05:00 Target Cells Rare 08/23/17 05:00 Tear Drop Cells Not Reportable 08/23/17 05:00 Ovalocytes Few 08/23/17 05:00 Helmet Cells Not Reportable 08/23/17 05:00 Perez-[place] Bodies Not Reportable 08/23/17 05:00 [place] Rings Not Reportable 08/23/17 05:00 [place] Cells Not Reportable 08/23/17 05:00 Bite Cells Not Reportable 08/23/17 05:00 Crenated Cell Not Reportable 08/23/17 05:00 Elliptocytes Not Reportable 08/23/17 05:00 Acanthocytes (Spur) Not Reportable 08/23/17 05:00 Rouleaux Not Reportable 08/23/17 05:00 Hemoglobin C Crystals Not Reportable 08/23/17 05:00 Schistocytes Not Reportable 08/23/17 05:00 Malaria parasites Not Reportable 08/23/17 05:00 Catarino Bodies Not Reportable 08/23/17 05:00 Hem Pathologist Commnt No 08/23/17 05:00 PT 16.3 Sec. (12.2-14.9) H 08/26/17 05:50 INR 1.24 (0.87-1.13) H 08/26/17 05:50 APTT 24.6 Sec. (24.2-36.6) 08/21/17 22:00 D-Dimer 1471.89 ng/mlDDU (0-234) H 08/21/17 22:00 Heparin Anti-Xa Level 0.32 U.I./ml (0.3-0.7) 08/26/17 05:50 Sodium 140 mmol/L (137-145) 08/23/17 05:00 Potassium 3.6 mmol/L (3.6-5.0) 08/23/17 05:00 Chloride 102.0 mmol/L (98-107) 08/23/17 05:00 Carbon Dioxide 20 mmol/L (22-30) L 08/23/17 05:00 Anion Gap 22 mmol/L 08/23/17 05:00 BUN 20 mg/dL (7-17) H 08/23/17 05:00 Creatinine 0.8 mg/dL (0.7-1.2) 08/23/17 05:00 Estimated GFR > 60 ml/min 08/23/17 05:00 BUN/Creatinine Ratio 25 % 08/23/17 05:00 Glucose 120 mg/dL (65-100) H 08/23/17 05:00 Calcium 7.7 mg/dL (8.4-10.2) L 08/23/17 05:00 Iron 205 ug/dL (37-170) H 08/25/17 02:50 TIBC 403 mcg/dL (250-450) 08/25/17 02:50 % Saturation 3.04 % 08/21/17 22:00 Transferrin 379 mg/dl (192-382) 08/21/17 22:00 Ferritin 12.8 ng/mL (13.0-400.0) L 08/25/17 02:50 C-Reactive Protein 1.20 mg/dL (0.00-1.30) 08/25/17 02:50 NT-Pro-B Natriuret Pep 4524 pg/mL (0-450) H 08/21/17 08:45 HCG, Qual Negative (Negative) 08/21/17 22:00 Blood Type B POSITIVE 08/21/17 22:00 Antibody Screen Negative 08/21/17 22:00 Crossmatch See Detail 08/21/17 22:00
[2017-08-26] MEDS: COUMADIN PO SCH (16:11)
[2017-08-26] MEDS: HEPARIN/ 0.45% NACL-25,000 UNIT/500 ML 25,000 UNIT/500 ML BAG IV SCH (16:12)
--- NOTE | 2017-08-26 22:02 | Progress Note ---
Assessment and Plan - Patient Problems (1) Dyspnea Current Visit: Yes Status: Acute Plan to address problem: oxygen (2) Iron deficiency anemia Current Visit: Yes Status: Acute Plan to address problem: supportive/replacement. (3) Pulmonary emboli Current Visit: Yes Status: Acute Plan to address problem: see w/up/notes. See notes above. Subjective Date of service: 08/26/17 Interval history: Patient seen/examined, record reviewed, case d/w her. W/up labs drawn today, results may take up to a week , but patient can come to the office for discussion.She may be able to go with LMWH + coumadin, and follow up in the office. Patient resting in bed, labs reviewed, notes reviewed/ echo results pending. continue with anti coags. Objective - Constitutional Vitals: Vital Signs - 12hr 08/26/17 08/26/17 08/26/17 10:16 11:18 14:17 Temperature 98.3 F Pulse Rate 81 86 Pulse Rate [ 80 Apical] Respiratory 20 Rate Blood Pressure 142/82 122/77 O2 Sat by Pulse 94 97 Oximetry 08/26/17 08/26/17 17:36 17:59 Temperature Pulse Rate 86 105 H Pulse Rate [ Apical] Respiratory 20 Rate Blood Pressure 123/77 O2 Sat by Pulse 99 Oximetry General appearance: Present: mild distress, well-nourished - EENT Eyes: PERRL, EOM intact ENT: hearing intact, clear oral mucosa Ears: bilateral: normal - Neck Neck: supple, normal ROM - Respiratory Respiratory: bilateral: diminished - Breasts Breasts: deferred - Cardiovascular Rhythm: regular Heart Sounds: Present: S1 & S2. Absent: gallop, rub Extremities: pulses intact, No edema, normal color, Full ROM - Gastrointestinal General gastrointestinal: Present: soft, non-tender, non-distended, normal bowel sounds Rectal Exam: deferred - Genitourinary Female genitourinary: deferred - Integumentary Integumentary: clear, warm, dry - Musculoskeletal Musculoskeletal: 1, strength equal bilaterally - Neurologic Neurologic: moves all extremities - Psychiatric Psychiatric: memory intact, appropriate mood/affect, intact judgment & insight - Labs CBC & Chem 7: 08/26/17 05:50 08/23/17 05:00 Labs: Abnormal lab results 08/26/17 08/26/17 Range/Units 05:50 05:50 Hgb 7.7 L (10.1-14.3) gm/dl Hct 26.8 L (30.3-42.9) % MCV 67 L (79-97) fl MCH 19 L (28-32) pg MCHC 29 L (30-34) % RDW 27.2 H (13.2-15.2) % PT 16.3 H (12.2-14.9) Sec. INR 1.24 H (0.87-1.13)
[2017-08-27 07:02] LABS: INR 1.39 (0.87-1.13)
[2017-08-27 07:03] LABS: Heparin anti-factor XA 0.36 U.I./ml (0.3-0.7)
[2017-08-27] MEDS: FEOSOL PO SCH ×2 (08:50→10:16)
[2017-08-27 08:52] VITALS: BP 118/64
--- NOTE | 2017-08-27 09:25 | Discharge Summary ---
Providers - Providers Date of Admission: 08/22/17 03:01 Attending physician: ELVIS TRINIDAD MD 08/23/17 13:19 Consult to Physician [CONS] Routine Consulting Provider: ROBERT WAYNE Reason For Exam: acute pe with dvt Place consult to:: teacher emotionally impaired pulmonary Notified:: office Phone number called:: [phone] Was contact made?: Yes If yes, spoke with:: phuc Time called:: 13:33 08/24/17 00:31 Consult to Physician [CONS] Routine Consulting Provider: SUKHDEV CALVILLO Reason For Exam: PE with DVT Place consult to:: Dr. Calvillo Notified:: Anna RN Phone number called:: Was contact made?: Yes If yes, spoke with:: Carlotta-answering service Time called:: 08:43 08/24/17 14:22 Consult to Physician [CONS] Routine Consulting Provider: WELLINGTON WAGNER Reason For Exam: PULMONARY EMBOLISIM, ARRYTHMIA Place consult to:: Dr. Wagner Notified:: Anna RN Phone number called:: Was contact made?: Yes If yes, spoke with:: Gina-answering service Time called:: 15:10 Primary care physician: DIE CAST SUPERVISOR Hospitalization Condition: Stable Hospital course: pulmonary HTN severe- pt to follow with pulmonary, PATIENT WILL NEED WORK UP FOR SLEEP APNEA. Disposition: - TO HOME OR SELFCARE Time spent for discharge: 35 mins Core Measure Documentation - Palliative Care Palliative Care/ Comfort Measures: Not Applicable - VTE Discharge Requirements Deep Vein Thrombosis/Pulmonary Embolism Present on Admission: Yes - Heart Failure Discharge Requirements YUMIKO/ARB for LVSD if EF <40%: Yes Beta renan at discharge: Yes Exam - Constitutional Vitals: Temp Pulse Resp BP Pulse Ox 98.4 F 77 20 118/64 96 08/27/17 07:47 08/27/17 07:47 08/27/17 07:47 08/27/17 07:47 08/27/17 07:47 Plan Activity: advance as tolerated, fall precautions Diet: low salt, per dietitian instruction Special Instructions: record daily weights, record daily BP diary Additional Instructions: inr check with artist consultant in 3 days Follow up with: SUKHDEV CALVILLO, DO [Staff Physician] - 3 Days WELLINGTON WAGNER MD [Staff Physician] - 7 Days PRIMARY CAREMD [Primary Care Provider] - 7 Days BREANNA ARELLANO MD [Staff Physician] - 7 Days Forms: Warfarin Discharge Instruction Prescriptions: Enoxaparin [Lovenox] 160 mg SUB-Q Q24HR #5 syringe Ferrous Sulfate [Feosol 325 MG tab] 325 mg PO BID #60 tablet Lisinopril [Zestril TAB] 2.5 mg PO QDAY #30 tab Metoprolol Xl [Metoprolol SUCCINATE ER TAB] 25 mg PO QDAY #30 tablet Warfarin [Coumadin] 10 mg PO DAILY@1700 #30 tablet
[2017-08-27] MEDS ORDERED: LOVENOX SUB-Q SCH (10:00)
[2017-08-27] MEDS: TOPROL XL PO SCH (10:15)
--- NOTE | 2017-08-27 11:45 | Progress Note ---
Assessment and Plan Bilateral PEs and DVT on IV heparin and warfarin Non Sustained Ventricular Tachycardia pt remained asymptomatic on low dose toprol xl Morbid Obesity Anemia Dilated cardiomyopathy Echocardiogram reveals a four-chamber cardiomyopathy with biventricular failure. Left ventricular ejection fraction is 20-25%. More significantly, the right heart chambers are severely dilated, there is moderate to severe tricuspid regurgitation, with severe pulmonary artery hypertension with pulmonary artery systolic pressure calculated at 70 mmHg. Findings are consistent with cor pulmonale in association with a primary left-sided cardiomyopathy. Recommendations: Medical therapy for dilated cardiomyopathy to include beta blockers and afterload reduction therapy. Sodium/fluid restrictions. Further cardiac evaluation with an elective stress myocardial perfusion imaging will be obtained as an outpatient. Subjective Date of service: 08/27/17 Interval history: Patient appears well. No distress noted. No events on telemetry monitoring. Objective Vital Signs Temp Pulse Resp BP Pulse Ox 08/27/17 10:15 77 118/64 08/27/17 07:47 98.4 F 77 20 118/64 96 08/27/17 03:46 98.3 F 80 18 102/57 95 08/27/17 01:52 98.2 F 87 20 143/100 97 08/26/17 22:00 89 08/26/17 19:54 75 99 08/26/17 19:53 98.2 F 75 18 102/71 99 08/26/17 17:59 105 H 08/26/17 17:36 86 20 123/77 99 08/26/17 14:17 98.3 F 86 20 122/77 97 - Physical Examination General: No Apparent Distress HEENT: Positive: PERRL Neck: Positive: trachea midline Cardiac: Positive: Reg Rate and Rhythm Neuro: Positive: Grossly Intact Abdomen: Positive: Soft, Active Bowel Sounds Extremities: Absent: edema - Labs and Meds Coagulation 08/27/17 Range/Units 05:35 PT 17.8 H (12.2-14.9) Sec. INR 1.39 H (0.87-1.13) - Imaging and Cardiology EKG: image reviewed
[2017-08-27 12:23] LABS: Protein S, Free 62 % normal (50-147); Protein S, Total 77 % (70-140)
[2017-08-27 14:23] LABS: Hematocrit 30.7 % (30.3-42.9); Hemoglobin 8.6 gm/dl (10.1-14.3)
[2017-08-28] MEDS ORDERED: LOVENOX SUB-Q SCH ×2 (10:00)
== END 2017-08-27 16:26 | disposition home or self-care (01) | DRG 175 ==
LOC: ED 08:01 → 4A 08-22 03:01
PROVIDERS: ADMIT Internal Medicine; ATTEND Internal Medicine
PROC: 30233N1 Transfusion of Nonautologous Red Blood Cells into Peripheral Vein, Percutaneous Approach (ICD-10-PCS; principal; 2017-08-22)
DX: I26.09 Other pulmonary embolism with acute cor pulmonale (principal); D68.59 Other primary thrombophilia; Z68.41 Body mass index [BMI] 40.0-44.9, adult; I47.2 Ventricular tachycardia; I42.0 Dilated cardiomyopathy; I82.433 Acute embolism and thrombosis of popliteal vein, bilateral; I11.0 Hypertensive heart disease with heart failure; I50.9 Heart failure, unspecified; D50.9 Iron deficiency anemia, unspecified; Z82.49 Family history of ischemic heart disease and other diseases of the circulatory system; N92.0 Excessive and frequent menstruation with regular cycle; E66.01 Morbid (severe) obesity due to excess calories; I27.21 Secondary pulmonary arterial hypertension; I50.82 Biventricular heart failure
CPT/HCPCS: 36415; 36430; 71046; 71275; 80048; 82728; 83516; 83550; 83880; 84703; 85007; 85014; 85018; 85025; 85027; 85049; 85220; 85301; 85305; 85307; 85379; 85520; 85610; 85613; 85730; 86140; 86300; 86304; 86850; 86900; 86901; 86920; 93005; 93010; 93306; 93970; 96361; 96365; 96376; J1644; J1650; J7030; P9016; Q9967

== ENCOUNTER 2020-12-02 07:40 | Observation (INO) | payer OTHER ==
--- NOTE | 2020-12-02 08:22 | Emergency Department Report ---
- General Chief Complaint: Upper Respiratory Infection Stated Complaint: DRAINING SINUS Time Seen by Provider: 12/02/20 08:11 Source: patient Mode of arrival: Ambulatory Limitations: No Limitations - History of Present Illness Initial Comments: 45-year-old female with a past history of congestive heart failure, hypertension, right lower extremity DVT not currently on any anticoagulants presents to the ER today with complaints of URI/sinus issues. Patient states that her symptoms started 4 to 5 days ago. She states that she feels like her sinuses are draining, she has been having clear rhinorrhea, productive cough with clear mucus, nasal congestion and wheezing. She denies any fever, chest pain or shortness of breath. She denies any apparent ill contacts or recent travel or known COVID-19 contacts. She denies any tobacco use. Patient states that her heart failure and hypertension and her right lower extremity DVT was diagnosed over 5 years ago. She states that she is no longer any medications related to hypertension, CHF or DVT. She states that she was taken off all the medications by her provider at the time. MD Complaint: cough, rhinorrhea, nasal congestion - Related Data Allergies Allergy/AdvReac Type Severity Reaction Status Date / Time No Known Allergies Allergy Verified 08/22/17 02:04 ED Review of Systems ROS: Stated complaint: DRAINING SINUS Other details as noted in HPI Comment: All other systems reviewed and negative Constitutional: denies: chills, fever Eyes: denies: eye pain, eye discharge, vision change ENT: denies: ear pain, throat pain, dental pain, hearing loss, epistaxis, congestion Respiratory: cough, wheezing. denies: shortness of breath, SOB with exertion, SOB at rest Cardiovascular: denies: chest pain, palpitations, edema, syncope, paroxysmal nocturnal dyspnea Endocrine: no symptoms reported Gastrointestinal: denies: abdominal pain, nausea, diarrhea, constipation, hematemesis, melena, hematochezia Genitourinary: denies: urgency, dysuria, frequency, hematuria, discharge, abnormal menses, dyspareunia Musculoskeletal: denies: back pain, joint swelling, arthralgia Skin: denies: rash, lesions, change in color, change in hair/nails, pruritus Neurological: denies: headache, weakness, paresthesias Psychiatric: denies: anxiety, depression, auditory hallucinations, visual hallucinations, homicidal thoughts, suicidal thoughts Hematological/Lymphatic: denies: easy bleeding, easy bruising ED Past Medical Hx - Past Medical History Previous Medical History?: Yes Hx Hypertension: Yes Hx Congestive Heart Failure: Yes Hx Diabetes: No Hx Asthma: No Hx COPD: No Hx HIV: No - Surgical History Past Surgical History?: Yes Additional Surgical History: Left knee surgery - Social History Smoking Status: Never Smoker ED Physical Exam - General Limitations: No Limitations ED Course Vital Signs 12/02/20 12/02/20 12/02/20 07:47 14:24 14:39 Temperature 99.2 F 98.1 F 98.1 F Pulse Rate 111 H 99 H 96 H Respiratory 16 16 22 Rate Blood Pressure 155/78 146/98 Blood Pressure 149/86 [Right] O2 Sat by Pulse 97 100 100 Oximetry 12/02/20 15:09 Temperature 98.4 F Pulse Rate 98 H Respiratory 22 Rate Blood Pressure 147/66 Blood Pressure [Right] O2 Sat by Pulse 100 Oximetry ED Medical Decision Making - Lab Data Result diagrams: 12/02/20 09:33 12/02/20 12:23 - EKG Data -: EKG Interpreted by [facility] EKG shows normal: sinus rhythm Rate: normal - Radiology Data Radiology results: report reviewed Patient: LENCHO KELLY MR#: [id number] : 1975 Acct:[id number] Age/Sex: 45 / F ADM Date: 12/02/20 Loc: ED Attending Dr: Ordering Physician: EDMUND GOODEN Date of Service: 12/02/20 Procedure(s): XR chest routine 2V Accession Number(s): [id number] cc: EDMUND GOODEN Fluoro Time In Minutes: XR chest routine 2V INDICATION / CLINICAL INFORMATION: cough/wheezin. COMPARISON: 08/21/2017 FINDINGS: SUPPORT DEVICES: None. HEART /PULMONARY VASCULATURE: No significant abnormality. LUNGS / PLEURA: Bilateral patchy airspace opacities, greatest in the right lung. No sizable pleural effusion. No pneumothorax. ADDITIONAL FINDINGS: No significant additional findings. IMPRESSION: Bilateral airspace opacities, concerning for pneumonia. Signer Name: Taylor Rivers MD Signed: 12/02/2020 8:40 AM Workstation Name: [id number] Transcribed By: DENICE Dictated By: TAYLOR RIVERS MD Electronically Authenticated By: TAYLOR RIVERS MD Signed Date/Time: 12/02/20839 DD/ 8 TD/TT: - Medical Decision Making 45-year-old female with a past history of congestive heart failure, hypertension, right lower extremity DVT not currently on any anticoagulants presents to the ER today with complaints of URI/sinus issues. Patient states that her symptoms started 4 to 5 days ago. She states that she feels like her sinuses are draining, she has been having clear rhinorrhea, productive cough with clear mucus, nasal congestion and wheezing. She denies any fever, chest pain or shortness of breath. She denies any apparent ill contacts or recent travel or known COVID-19 contacts. She denies any tobacco use. Patient states that her heart failure and hypertension and her right lower extremity DVT was diagnosed over 5 years ago. She states that she is no longer any medications related to hypertension, CHF or DVT. She states that she was taken off all the medications by her provider at the time. 1156: CXR alone was initially ordered. CXR showed bilateral airspace opacities, concerning for pneumonia. Basic labs and IV antibiotic were then ordered with intention to discharge patient home as long as wbc was normal and repeat VS were stable because patient overall was well appearing, not toxic and not in any pain or respiratory distress and neurologically intact with normal gait. And to have outpatient COVID test. Results of CBC showed nl WBC, but patient H/H was 5.8/20.8. Reviewed patient past labs, she does have underlying anemia but todays result is lowest that its ever been. Discussed case with Dr Miguel, recommend admission to hospital. Additional labs ordered including type and screen, and 1 unit of PRBC. Case Discussed with Dr Irwin, hospitalist and he accepted the admission. Critical care attestation.: If time is entered above; I have spent that time in minutes in the direct care of this critically ill patient, excluding procedure time. ED Disposition Clinical Impression: Pneumonia, Severe anemia Disposition: OP ADMIT IP TO THIS HOSP Is pt being admited?: Yes Does the pt Need Aspirin: No Condition: Stable
--- NOTE | 2020-12-02 08:45 | XRay Report ---
XR chest routine 2V INDICATION / CLINICAL INFORMATION: cough/wheezin. COMPARISON: 08/21/2017 FINDINGS: SUPPORT DEVICES: None. HEART /PULMONARY VASCULATURE: No significant abnormality. LUNGS / PLEURA: Bilateral patchy airspace opacities, greatest in the right lung. No sizable pleural e ffusion. No pneumothorax. ADDITIONAL FINDINGS: No significant additional findings. IMPRESSION: Bilateral airspace opacities, concerning for pneumonia. Signer Name: Mac Rivers MD Signed: 12/02/2020 8:40 AM Workstation Name: [id number]
[2020-12-02] MEDS ORDERED: ACETAMINOPHEN 500 MG TAB PO ONE (09:07)
[2020-12-02] MEDS ORDERED: cefTRIAXone/NS 1 GM/50 ML 1 GM/50 ML BAG IV ONE (09:08)
[2020-12-02 11:11] LABS: Basophils % (Auto) 0.5 % (0.0-1.8); Eosinophils % (Auto) 1.1 % (0.0-4.3); Lymphocytes % (Auto) 23.8 % (13.4-35.0); Mean Corpuscular HGB Conc 28 % (30-34); Monocytes # (Auto) 0.4 K/mm3 (0.0-0.8); Monocytes % (Auto) 8.6 % (0.0-7.3); Platelet Count 422 K/mm3 (140-440); Red Blood Count 3.55 M/mm3 (3.65-5.03)
[2020-12-02 11:13] LABS: Hematocrit 20.8 % (30.3-42.9); Hemoglobin 5.8 gm/dl (10.1-14.3); Mean Corpuscular Volume 59 fl (79-97); Red Cell Distribution Width 21.9 % (13.2-15.2)
[2020-12-02 11:31] LABS: Alanine Aminotransferase 8 units/L (7-56); Albumin 3.6 g/dL (3.9-5); Blood Urea Nitrogen 9 mg/dL (7-17); Calcium 7.8 mg/dL (8.4-10.2); Hemolysis Index 5
[2020-12-02 11:32] LABS: BUN/Creatinine Ratio 13
[2020-12-02] MEDS ORDERED: SODIUM CHLORIDE 0.9% 500 ML 500 ML IV ONE ×2 (11:54→22:14)
[2020-12-02] MEDS ORDERED: ACETAMINOPHEN 325 MG TAB PO PRN (12:19)
[2020-12-02] MEDS ORDERED: ONDANSETRON 4 MG/2 ML INJ IV PRN (12:19)
[2020-12-02 13:18] LABS: C-Reactive Protein 2.9 mg/dL (0.00-1.30)
[2020-12-02] MEDS ORDERED: SODIUM CHLORIDE 0.9% 500 ML 500 ML ONE (14:10)
[2020-12-02 23:40] LABS: Mean Corpuscular HGB Conc 29 % (30-34); Platelet Count 422 K/mm3 (140-440); Red Blood Count 3.87 M/mm3 (3.65-5.03)
[2020-12-02 23:50] LABS: Hemoglobin 6.9 gm/dl (10.1-14.3)
[2020-12-02 23:51] LABS: Hematocrit 23.7 % (30.3-42.9); Mean Corpuscular Volume 61 fl (79-97); Red Cell Distribution Width 26.5 % (13.2-15.2)
[2020-12-03 05:04] LABS: % Iron Saturation 9.12 %
--- NOTE | 2020-12-03 06:08 | History and Physical Report ---
History of Present Illness Date of examination: 12/02/20 Date of admission: 12/02/20 12:19 Chief complaint: Shortness of breath on minimal exertion Nasal congestion for 4 to 5 days History of present illness: 44-year-old female with history of hypertension, congestive heart failure right lower extremity DVT in the past and not on any anticoagulants comes to the ER for nasal congestion and nasal drip for 4 to 5 days. Patient has been having clear discharge from the nose and cough for 3 of mucoid sputum nasal congestion and wheezing. No fever. No chest pain. Feels tired and short of breath easily. No exposure to coronavirus. In the emergency room where work-up was hemoglobin was very low. Hemoglobin was 5.8 and hence the admission. No increased vaginal bleeding. No hematemesis or melena. No NSAID intake. No history of sickle cell trait or sickle cell anemia. - Past Medical History Previous Medical History?: Yes --Hypertension: Yes --Congestive Heart Failure: Yes - Surgical History Past Surgical History?: Yes Additional Surgical History: Left knee surgery - Social History --Never Smoker --No alcohol -Family history --Htn Review of Systems ROS: Stated complaint: DRAINING SINUS Other details as noted in HPI Comment: All other systems reviewed and negative Constitutional: denies: chills, fever Eyes: denies: eye pain, eye discharge, vision change ENT: denies: ear pain, throat pain, dental pain, hearing loss, epistaxis, congestion Respiratory: cough, wheezing. denies: shortness of breath, SOB with exertion, SOB at rest Cardiovascular: denies: chest pain, palpitations, edema, syncope, paroxysmal nocturnal dyspnea Endocrine: no symptoms reported Gastrointestinal: denies: abdominal pain, nausea, diarrhea, constipation, hematemesis, melena, hematochezia Genitourinary: denies: urgency, dysuria, frequency, hematuria, discharge, abnormal menses, dyspareunia Musculoskeletal: denies: back pain, joint swelling, arthralgia Skin: denies: rash, lesions, change in color, change in hair/nails, pruritus Neurological: denies: headache, weakness, paresthesias Psychiatric: denies: anxiety, depression, auditory hallucinations, visual hallucinations, homicidal thoughts, suicidal thoughts Hematological/Lymphatic: denies: easy bleeding, easy bruising x Medications and Allergies Allergies Allergy/AdvReac Type Severity Reaction Status Date / Time No Known Allergies Allergy Verified 08/22/17 02:04 Active Meds: Active Medications Acetaminophen (Acetaminophen 325 Mg Tab) 650 mg PO Q4H PRN PRN Reason: Pain MILD(1-3)/Fever >100.5/PEREZ Ondansetron HCl (Ondansetron 4 Mg/2 Ml Inj) 4 mg IV Q8H PRN PRN Reason: Nausea And Vomiting Sodium Chloride (Sodium Chloride 0.9% 10 Ml Flush Syringe) 10 ml IV BID RUBA Last Admin: 12/02/20 23:54 Dose: 10 ml Documented by: Sodium Chloride (Sodium Chloride 0.9% 10 Ml Flush Syringe) 10 ml IV PRN PRN PRN Reason: LINE FLUSH Exam - Constitutional Vitals: Temp Pulse Resp BP Pulse Ox 98.1 F 91 H 19 113/53 97 12/03/20 00:28 12/03/20 05:01 12/03/20 05:01 12/03/20 05:01 12/03/20 05:01 General appearance: Present: no acute distress, well-nourished, other (Pale mucous membranes) - EENT Eyes: Present: PERRL ENT: hearing intact, clear oral mucosa, other (Pale mucous membranes) - Neck Neck: Present: supple, normal ROM - Respiratory Respiratory effort: normal Respiratory: bilateral: CTA - Cardiovascular Heart rate: 98 Rhythm: regular Heart Sounds: Present: S1 & S2. Absent: rub, click - Extremities Extremities: pulses symmetrical, No edema Peripheral Pulses: within normal limits - Abdominal General gastrointestinal: Present: soft, non-tender, non-distended, normal bowel sounds Female genitourinary: Present: normal - Rectal Rectal Exam: deferred - Integumentary Integumentary: Present: clear, warm, dry - Musculoskeletal Musculoskeletal: gait normal, strength equal bilaterally - Psychiatric Psychiatric: appropriate mood/affect, intact judgment & insight - Neurologic Neurologic: CNII-XII intact, moves all extremities HEART Score - HEART Score History: Slightly suspicious EKG: Non-specific Age: < 45 Troponin: Troponin T 0.020 ng/mL (0.00-0.029) 12/02/20 11:43 Troponin: < normal limit - Critical Actions Critical Actions: 0-3 pts:0.9-1.7%risk of adverse cardiac event.Candidate for discharge Results - Labs CBC & Chem 7: 12/02/20 22:51 12/02/20 12:23 Labs: Laboratory Last Values WBC 4.9 K/mm3 (4.5-11.0) 12/02/20 22:51 RBC 3.87 M/mm3 (3.65-5.03) 12/02/20 22:51 Hgb 6.9 gm/dl (10.1-14.3) L 12/02/20 22:51 Hct 23.7 % (30.3-42.9) L 12/02/20 22:51 MCV 61 fl (79-97) L 12/02/20 22:51 MCH 18 pg (28-32) L 12/02/20 22:51 MCHC 29 % (30-34) L 12/02/20 22:51 RDW 26.5 % (13.2-15.2) H 12/02/20 22:51 Plt Count 422 K/mm3 (140-440) 12/02/20 22:51 Lymph % (Auto) 23.8 % (13.4-35.0) 12/02/20 09:33 Elk % (Auto) 8.6 % (0.0-7.3) H 12/02/20 09:33 Eos % (Auto) 1.1 % (0.0-4.3) 12/02/20 09:33 Baso % (Auto) 0.5 % (0.0-1.8) 12/02/20 09:33 Lymph # (Auto) 1.0 K/mm3 (1.2-5.4) L 12/02/20 09:33 Elk # (Auto) 0.4 K/mm3 (0.0-0.8) 12/02/20 09:33 Eos # (Auto) 0.0 K/mm3 (0.0-0.4) 12/02/20 09:33 Baso # (Auto) 0.0 K/mm3 (0.0-0.1) 12/02/20 09:33 Seg Neutrophils % 66.0 % (40.0-70.0) 12/02/20 09:33 Seg Neutrophils # 2.8 K/mm3 (1.8-7.7) 12/02/20 09:33 D-Dimer 452.95 ng/mlDDU (0-234) H 12/02/20 12:23 Sodium 137 mmol/L (137-145) 12/02/20 09:33 Potassium 3.5 mmol/L (3.6-5.0) L 12/02/20 09:33 Chloride 99.3 mmol/L (98-107) 12/02/20 09:33 Carbon Dioxide 25 mmol/L (22-30) 12/02/20 09:33 Anion Gap 16 mmol/L 12/02/20 09:33 BUN 9 mg/dL (7-17) 12/02/20 09:33 Creatinine 0.7 mg/dL (0.6-1.2) 12/02/20 09:33 Estimated GFR > 60 ml/min 12/02/20 09:33 BUN/Creatinine Ratio 13 % 12/02/20 09:33 Glucose 93 mg/dL (65-100) 12/02/20 12:23 POC Glucose 92 mg/dL (70-105) 12/02/20 22:18 Calcium 7.8 mg/dL (8.4-10.2) L 12/02/20 09:33 Iron 30 ug/dL (37-170) L 12/02/20 22:51 TIBC 329 mcg/dL (250-450) 12/02/20 22:51 % Saturation 9.12 % 12/02/20 22:51 Transferrin 297 mg/dl (192-382) 12/02/20 22:51 Ferritin 17.6 ng/mL (10.0-200.0) 12/02/20 12:23 Total Bilirubin 0.40 mg/dL (0.1-1.2) 12/02/20 09:33 AST 17 units/L (5-40) 12/02/20 09:33 ALT 8 units/L (7-56) 12/02/20 09:33 Alkaline Phosphatase 66 units/L (35-129) 12/02/20 09:33 Lactate Dehydrogenase 409 units/L (91-180) H 12/02/20 12:23 Troponin T 0.020 ng/mL (0.00-0.029) 12/02/20 11:43 C-Reactive Protein 2.90 mg/dL (0.00-1.30) H 12/02/20 12:23 NT-Pro-B Natriuret Pep 532.0 pg/mL (0-450) H 12/02/20 11:43 Total Protein 7.2 g/dL (6.3-8.2) 12/02/20 09:33 Albumin 3.6 g/dL (3.9-5) L 12/02/20 09:33 Albumin/Globulin Ratio 1.0 % 12/02/20 09:33 Vitamin B12 293.0 pg/mL (211-911) 12/02/20 22:51 Procalcitonin < 0.05 ng/mL (<0.15) 12/02/20 12:23 Blood Type B POSITIVE 12/02/20 11:43 Antibody Screen Negative 12/02/20 11:43 Crossmatch See Detail 12/02/20 11:43 Short CBC 12/02/20 12/02/20 Range/Units 09:33 22:51 WBC 4.2 L 4.9 (4.5-11.0) K/mm3 Hgb 5.8 L* 6.9 L (10.1-14.3) gm/dl Hct 20.8 L 23.7 L (30.3-42.9) % Plt Count 422 422 (140-440) K/mm3 BMP 12/02/20 12/02/20 09:33 12:23 Sodium 137 Potassium 3.5 L Chloride 99.3 Carbon Dioxide 25 BUN 9 Creatinine 0.7 Glucose 97 93 Calcium 7.8 L Cardiac Enzymes 12/02/20 Range/Units 11:43 Troponin T 0.020 (0.00-0.029) ng/mL Liver Function 12/02/20 Range/Units 09:33 Total Bilirubin 0.40 (0.1-1.2) mg/dL AST 17 (5-40) units/L ALT 8 (7-56) units/L Alkaline Phosphatase 66 (35-129) units/L Albumin 3.6 L (3.9-5) g/dL Microbiology: Microbiology 12/02/20 11:43 Peripheral/Venous Blood Culture - Preliminary Culture in Progress 12/02/20 11:43 Peripheral/Venous Blood Culture - Preliminary Culture in Progress - Imaging and Cardiology Chest x-ray: report reviewed (Bilateral airspace opacities concerning for pneu monia) Padilla/IV: Voiding Method Toilet Assessment and Plan Advance Directives: Yes (Full code) VTE prophylaxis?: Chemical Plan of care discussed with patient/family: Yes - Patient Problems (1) Symptomatic anemia Current Visit: Yes Status: Acute Plan to address problem: Transfuse 1 to 2 units of packed red blood cells Anemia work-up including iron studies, B12 and folic acid levels No GI or vaginal bleeding Iron levels were very low--- ferrous gluconate started GI consult requested but colonoscopy/EGD can be done as an inpatient/outpatient (2) Hypertension Current Visit: Yes Status: Chronic Qualifiers: Hypertension type: essential hypertension Qualified Code(s): I10 - Essential (primary) hypertension Plan to address problem: Not on any medications We will trend the blood pressure and restart medications if necessary (3) Bilateral pneumonia Current Visit: Yes Status: Acute Plan to address problem: Treat as currently acquired pneumonia Coronavirus PCR requested (4) Person under investigation for COVID-19 Current Visit: Yes Status: Acute Plan to address problem: Check coronavirus PCR (5) CHF (congestive heart failure) Current Visit: Yes Status: Chronic Qualifiers: Heart failure type: combined systolic and diastolic Heart failure chronicity: chronic Qualified Code(s): I50.42 - 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
[2020-12-03] MEDS ORDERED: ONDANSETRON 4 MG/2 ML INJ IV PRN (06:20)
[2020-12-03] MEDS ORDERED: ACETAMINOPHEN 325 MG TAB PO PRN (06:20)
[2020-12-03] MEDS ORDERED: CALCIUM GLUCONATE 2,000 MG in SODIUM CHLORIDE 0.9% 100 ML IV ONE (06:23)
--- NOTE | 2020-12-03 06:26 | Event Note ---
Date: 12/02/20 Second unit of packed red blood cells requested Hemoglobin of 6.9 after 1 unit of blood transfusion Iron levels very low May need iron infusion as an outpatient Patient to be discharged on ferrous gluconate and Caltrate twice a day Check echocardiogram for ejection fraction. Patient not on any diuretics or antihypertensives
[2020-12-03 07:46] LABS: Hematocrit 24.5 % (30.3-42.9); Hemoglobin 7.4 gm/dl (10.1-14.3); Mean Corpuscular HGB Conc 30 % (30-34); Platelet Count 381 K/mm3 (140-440); Red Blood Count 3.81 M/mm3 (3.65-5.03)
[2020-12-03 07:47] LABS: Mean Corpuscular Volume 64 fl (79-97)
--- NOTE | 2020-12-03 07:54 | Progress Note ---
Assessment and Plan Assessment and plan: (1) Symptomatic anemia Current Visit: Yes Status: Acute Plan to address problem: Transfuse 1 to 2 units of packed red blood cells Anemia work-up including iron studies, B12 and folic acid levels No GI or vaginal bleeding Iron levels were very low--- ferrous gluconate started GI consult requested but colonoscopy/EGD can be done as an inpatient/outpatient (2) Hypertension Current Visit: Yes Status: Chronic Qualifiers: Hypertension type: essential hypertension Qualified Code(s): I10 - Essential (primary) hypertension Plan to address problem: Not on any medications We will trend the blood pressure and restart medications if necessary (3) Bilateral pneumonia Current Visit: Yes Status: Acute Plan to address problem: Treat as currently acquired pneumonia Coronavirus PCR requested (4) Person under investigation for COVID-19 Current Visit: Yes Status: Acute Plan to address problem: Check coronavirus PCR (5) CHF (congestive heart failure) Current Visit: Yes Status: Chronic Qualifiers: Heart failure type: combined systolic and diastolic Heart failure chronicity: chronic Qualified Code(s): I50.42 - Chronic combined systolic (congestive) and diastolic (congestive) heart failure Plan to address problem: Patient is not on any diuretics Echocardiogram for ejection fraction (6) Hypocalcemia Current Visit: Yes Status: Chronic Plan to address problem: Patient started on Caltrate and IV calcium gluconate 2 g given (7) DVT prophylaxis Current Visit: Yes Status: Acute Plan to address problem: On heparin and GI prophylaxis 12/03/2020 -Patient was transfused 2 units of blood and posttransfusion hemoglobin 7.4, GI consulted -COVID-19 test is pending; patient was not on oxygen -Patient is on antibiotic -Echo is pending -Patient has elevated D-dimer and bilateral Doppler ultrasound of the lower extremities was ordered History Interval history: Patient was seen and evaluated this morning Patient did not have any shortness of breath Hospitalist Physical - Physical exam Narrative exam: Not in cardiopulmonary distress. The patient appeared well nourished and normally developed. Vital signs as documented. Head exam is unremarkable. No scleral icterus . Neck is without jugular venous distension, thyromegaly, or carotid bruits. Lungs are clear to auscultation. Cardiac exam reveals regular rate and Rhythm. Abdominal exam reveals normal bowel sounds, nontender, no organomegaly. Extremities are nonedematous and both femoral and pedal pulses are normal. [employer]ACH[employer]GER: Alert and oriented 3. No focal weakness. - Constitutional Vitals: Temp Pulse Resp BP Pulse Ox 98.1 F 91 H 18 113/53 97 12/03/20 00:28 12/03/20 05:01 12/03/20 06:03 12/03/20 05:01 12/03/20 05:01 General appearance: Present: no acute distress, well-nourished, other (Pale mucous membranes) HEART Score - HEART Score EKG: Non-specific Age: < 45 Troponin: Troponin T 0.020 ng/mL (0.00-0.029) 12/02/20 11:43 Troponin: < normal limit - Critical Actions Critical Actions: 0-3 pts:0.9-1.7%risk of adverse cardiac event.Candidate for discharge Results - Labs CBC & Chem 7: 12/03/20 06:25 12/03/20 06:25 Labs: Laboratory Last Values WBC 4.5 K/mm3 (4.5-11.0) 12/03/20 06:25 RBC 3.81 M/mm3 (3.65-5.03) 12/03/20 06:25 Hgb 7.4 gm/dl (10.1-14.3) L 12/03/20 06:25 Hct 24.5 % (30.3-42.9) L 12/03/20 06:25 MCV 64 fl (79-97) L 12/03/20 06:25 MCH 20 pg (28-32) L 12/03/20 06:25 MCHC 30 % (30-34) 12/03/20 06:25 RDW 30.0 % (13.2-15.2) H 12/03/20 06:25 Plt Count 381 K/mm3 (140-440) 12/03/20 06:25 Lymph % (Auto) 23.8 % (13.4-35.0) 12/02/20 09:33 Ogle % (Auto) 8.6 % (0.0-7.3) H 12/02/20 09:33 Eos % (Auto) 1.1 % (0.0-4.3) 12/02/20 09:33 Baso % (Auto) 0.5 % (0.0-1.8) 12/02/20 09:33 Lymph # (Auto) 1.0 K/mm3 (1.2-5.4) L 12/02/20 09:33 Ogle # (Auto) 0.4 K/mm3 (0.0-0.8) 12/02/20 09:33 Eos # (Auto) 0.0 K/mm3 (0.0-0.4) 12/02/20 09:33 Baso # (Auto) 0.0 K/mm3 (0.0-0.1) 12/02/20 09:33 Seg Neutrophils % 66.0 % (40.0-70.0) 12/02/20 09:33 Seg Neutrophils # 2.8 K/mm3 (1.8-7.7) 12/02/20 09:33 D-Dimer 452.95 ng/mlDDU (0-234) H 12/02/20 12:23 Sodium 137 mmol/L (137-145) 12/02/20 09:33 Potassium 3.5 mmol/L (3.6-5.0) L 12/02/20 09:33 Chloride 99.3 mmol/L (98-107) 12/02/20 09:33 Carbon Dioxide 25 mmol/L (22-30) 12/02/20 09:33 Anion Gap 16 mmol/L 12/02/20 09:33 BUN 9 mg/dL (7-17) 12/02/20 09:33 Creatinine 0.7 mg/dL (0.6-1.2) 12/02/20 09:33 Estimated GFR > 60 ml/min 12/02/20 09:33 BUN/Creatinine Ratio 13 % 12/02/20 09:33 Glucose 93 mg/dL (65-100) 12/02/20 12:23 POC Glucose 92 mg/dL (70-105) 12/02/20 22:18 Calcium 7.8 mg/dL (8.4-10.2) L 12/02/20 09:33 Iron 30 ug/dL (37-170) L 12/02/20 22:51 TIBC 329 mcg/dL (250-450) 12/02/20 22:51 % Saturation 9.12 % 12/02/20 22:51 Transferrin 297 mg/dl (192-382) 12/02/20 22:51 Ferritin 17.6 ng/mL (10.0-200.0) 12/02/20 12:23 Total Bilirubin 0.40 mg/dL (0.1-1.2) 12/02/20 09:33 AST 17 units/L (5-40) 12/02/20 09:33 ALT 8 units/L (7-56) 12/02/20 09:33 Alkaline Phosphatase 66 units/L (35-129) 12/02/20 09:33 Lactate Dehydrogenase 409 units/L (91-180) H 12/02/20 12:23 Troponin T 0.020 ng/mL (0.00-0.029) 12/02/20 11:43 C-Reactive Protein 2.90 mg/dL (0.00-1.30) H 12/02/20 12:23 NT-Pro-B Natriuret Pep 532.0 pg/mL (0-450) H 12/02/20 11:43 Total Protein 7.2 g/dL (6.3-8.2) 12/02/20 09:33 Albumin 3.6 g/dL (3.9-5) L 12/02/20 09:33 Albumin/Globulin Ratio 1.0 % 12/02/20 09:33 Vitamin B12 293.0 pg/mL (211-911) 12/02/20 22:51 Procalcitonin < 0.05 ng/mL (<0.15) 12/02/20 12:23 Blood Type B POSITIVE 12/02/20 11:43 Antibody Screen Negative 12/02/20 11:43 Crossmatch See Detail 12/02/20 11:43 Microbiology: Microbiology 12/02/20 11:43 Peripheral/Venous Blood Culture - Preliminary Culture in Progress 12/02/20 11:43 Peripheral/Venous Blood Culture - Preliminary Culture in Progress Padilla/IV: Voiding Method Toilet Active Medications - Current Medications Current Medications: Generic Name Dose Route Start Last Admin Trade Name Freq PRN Reason Stop Dose Admin Acetaminophen 650 mg 12/03/20 06:20 Acetaminophen 325 Mg Tab PO Q4H PRN Pain MILD(1-3)/Fever >100.5/PEREZ Ferrous Gluconate 324 mg 12/03/20 10:00 Ferrous Gluconate 324 Mg Tab PO QDAY RUBA Azithromycin 500 mg in 250 mls @ 250 mls/hr 12/03/20 07:00 Zithromax/Ns IV Q24H RUBA Ceftriaxone Sodium 2 gm in 100 mls @ 200 mls/hr 12/03/20 06:30 Rocephin/Ns 2 Gm/100 Ml IV Q24H [facility] Protocol Multivitamins/Minerals 1 each 12/03/20 10:00 Calcium Carb/Vit D3/Minerals 600 Mg/800 Units Tab PO BID [facility] Ondansetron HCl 4 mg 12/03/20 06:20 Ondansetron 4 Mg/2 Ml Inj IV Q8H PRN Nausea And Vomiting Sodium Chloride 10 ml 12/03/20 10:00 Sodium Chloride 0.9% 10 Ml Flush Syringe IV BID [facility] Sodium Chloride 10 ml 12/03/20 06:20 Sodium Chloride 0.9% 10 Ml Flush Syringe IV PRN PRN LINE FLUSH
[2020-12-03 08:04] LABS: Alanine Aminotransferase 7 units/L (7-56); Albumin 3.3 g/dL (3.9-5); BUN/Creatinine Ratio 10; Blood Urea Nitrogen 6 mg/dL (7-17); Calcium 7.5 mg/dL (8.4-10.2); Hemolysis Index 2
[2020-12-03 09:12] LABS: Total Cells Counted 100
[2020-12-03 09:13] LABS: Anisocytosis 2+; Poikilocytosis 2+
[2020-12-03 09:14] LABS: Ovalocytes 2+
[2020-12-03] MEDS ORDERED: FERROUS GLUCONATE 324 MG TAB PO SCH (10:00)
[2020-12-03] MEDS: CALCIUM CARB/VIT D3/MINERALS 600 MG/800 UNITS TAB PO SCH ×2 (10:04→21:59)
[2020-12-03] MEDS: cefTRIAXone/NS 2 GM/100 ML 2 GM/100 ML BAG IV SCH (10:04)
[2020-12-03] MEDS: AZITHROMYCIN/NS 500 MG/250 ML 500 MG/250 ML BAG IV SCH (10:10)
--- NOTE | 2020-12-03 18:35 | Vascular Lab Report ---
VL venous duplex LE BILAT INDICATION / CLINICAL INFORMATION: SOB, elevated d-dimer. TECHNIQUE: Duplex doppler imaging was performed using venous compression and other maneuvers. COMPARISON: None available. FINDINGS: No venous thrombosis is identified within the visualized extremity vasculature. ADDITIONAL FINDINGS: None. IMPRESSION: 1. No sonographic evidence for DVT in the visualized bilateral lower extremity vasculature. Signer Name: Kevin Russo MD Signed: 12/03/2020 6:31 PM Workstation Name: [id number]
[2020-12-04] MEDS: cefTRIAXone/NS 2 GM/100 ML 2 GM/100 ML BAG IV SCH (05:30)
[2020-12-04] MEDS: AZITHROMYCIN/NS 500 MG/250 ML 500 MG/250 ML BAG IV SCH (05:59)
[2020-12-04 07:02] LABS: Hematocrit 25.4 % (30.3-42.9); Hemoglobin 7.6 gm/dl (10.1-14.3); Mean Corpuscular HGB Conc 30 % (30-34); Platelet Count 309 K/mm3 (140-440)
[2020-12-04 07:05] LABS: Mean Corpuscular Volume 65 fl (79-97); Red Cell Distribution Width 30.4 % (13.2-15.2)
[2020-12-04 07:22] LABS: Blood Urea Nitrogen 4 mg/dL (7-17); Calcium 7.8 mg/dL (8.4-10.2); Hemolysis Index 6
[2020-12-04 07:29] LABS: BUN/Creatinine Ratio 7
[2020-12-04] MEDS: FERROUS SULFATE 325 MG TAB PO SCH ×3 (09:51→21:00)
[2020-12-04] MEDS: CALCIUM CARB/VIT D3/MINERALS 600 MG/800 UNITS TAB PO SCH ×2 (09:51→21:00)
--- NOTE | 2020-12-04 11:09 | Discharge Summary ---
Providers - Providers Date of Admission: 12/02/20 12:19 Date of discharge: 12/04/20 Attending physician: ANTONIA HOLLAND MD 12/03/20 00:29 Consult to Physician [CONS] Routine Comment: Consulting Provider: NEPTALI HERNANDEZ Physician Instructions: Reason For Exam: severe anemia Primary care physician: CO TEACHER Hospitalization Reason for admission: Anemia, pneumonia Condition: Stable Hospital course: History of present illness: 44-year-old female with history of hypertension, congestive heart failure right lower extremity DVT in the past and not on any anticoagulants comes to the ER for nasal congestion and nasal drip for 4 to 5 days. Patient has been having clear discharge from the nose and cough for 3 of mucoid sputum nasal congestion and wheezing. No fever. No chest pain. Feels tired and short of breath easily. No exposure to coronavirus. In the emergency room where work-up was hemoglobin was very low. Hemoglobin was 5.8 and hence the admission. No increased vaginal bleeding. No hematemesis or melena. No NSAID intake. No history of sickle cell trait or sickle cell anemia. Hospital course Patient was admitted to the floor and transfused 2 units of blood and posttransfusion hemoglobin this morning was 7.6. Patient was stable and not on any oxygen. Patient states she has history of anemia long time ago. Anemia is low and patient was given iron sulfate and will be discharged with that. Chest x-ray showed bilateral pneumonia and patient was treated with IV antibiotics while inpatient and will be discharged with Levaquin for 5 days. Patient discharged home with advised to have follow-up with Dr. Leonard in a week. Patient was hemodynamically stable at the time of discharge. COVID-19 test was done and negative. Management plan was discussed in detail with the patient and was in agreement with the plan of care. Disposition: DC-01 TO HOME OR SELFCARE Final Discharge Diagnosis (Prints w/discharge instructions): Iron deficiency anemia. Pneumonia Time spent for discharge: 32 minutes - Discharge Diagnoses (1) Bilateral pneumonia Status: Acute (2) Symptomatic anemia Status: Acute Core Measure Documentation - Palliative Care Palliative Care/ Comfort Measures: Not Applicable - Core Measures Any of the following diagnoses?: none Exam - Physical Exam Narrative exam: Not in cardiopulmonary distress. The patient is morbidly obese. Vital signs as documented. Head exam is unremarkable. No scleral icterus . Neck is without jugular venous distension, thyromegaly, or carotid bruits. Lungs are clear to auscultation. Cardiac exam reveals regular rate and Rhythm. Abdominal exam reveals normal bowel sounds, nontender, no organomegaly. Extremities are nonedematous and both femoral and pedal pulses are normal. 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 No focal weakness. - Constitutional Vitals: Temp Pulse Resp BP Pulse Ox 98.4 F 91 H 18 119/57 98 12/04/20 03:06 12/04/20 03:06 12/04/20 06:10 12/04/20 03:06 12/04/20 03:06 Plan Activity: no restrictions Weight Bearing Status: Full Weight Bearing Diet: regular Follow up with: PRIMARY CAREMD [Primary Care Provider] - 7 Days SINAI LEONARD MD [Staff Physician] - 7 Days (Anemia work up) Prescriptions: Ferrous Sulfate [Feosol 325 MG tab] 325 mg PO TID #90 tablet levoFLOXacin [Levaquin] 750 mg PO QDAY #5 tablet
[2020-12-04 11:11] LABS: Total Cells Counted 100
[2020-12-04 11:12] LABS: Anisocytosis 3+; Hypochromasia 2+
[2020-12-04 11:13] LABS: Ovalocytes Few; Platelet Estimate Consistent w Auto; Tear Drop Cells Rare
--- NOTE | 2020-12-04 13:55 | Progress Note ---
Assessment and Plan Assessment and plan: (1) Symptomatic anemia Current Visit: Yes Status: Acute Plan to address problem: Transfuse 1 to 2 units of packed red blood cells Anemia work-up including iron studies, B12 and folic acid levels No GI or vaginal bleeding Iron levels were very low--- ferrous gluconate started GI consult requested but colonoscopy/EGD can be done as an inpatient/outpatient (2) Hypertension Current Visit: Yes Status: Chronic Qualifiers: Hypertension type: essential hypertension Qualified Code(s): I10 - Essential (primary) hypertension Plan to address problem: Not on any medications We will trend the blood pressure and restart medications if necessary (3) Bilateral pneumonia Current Visit: Yes Status: Acute Plan to address problem: Treat as currently acquired pneumonia Coronavirus PCR requested (4) Person under investigation for COVID-19 Current Visit: Yes Status: Acute Plan to address problem: Check coronavirus PCR (5) CHF (congestive heart failure) Current Visit: Yes Status: Chronic Qualifiers: Heart failure type: combined systolic and diastolic Heart failure chronicity: chronic Qualified Code(s): I50.42 - Chronic combined systolic (congestive) and diastolic (congestive) heart failure Plan to address problem: Patient is not on any diuretics Echocardiogram for ejection fraction (6) Hypocalcemia Current Visit: Yes Status: Chronic Plan to address problem: Patient started on Caltrate and IV calcium gluconate 2 g given (7) DVT prophylaxis Current Visit: Yes Status: Acute Plan to address problem: On heparin and GI prophylaxis 12/03/2020 -Patient was transfused 2 units of blood and posttransfusion hemoglobin 7.4, GI consulted -COVID-19 test is pending; patient was not on oxygen -Patient is on antibiotic -Echo is pending -Patient has elevated D-dimer and bilateral Doppler ultrasound of the lower extremities was ordered 12/04/2020 -Patient was discharged with iron tablet and Levaquin, but while waiting to go home patient had 50 runs of V tach -Cardiology consult and will consult the discharge. - Patient Problems (1) Bilateral pneumonia Current Visit: Yes Status: Acute (2) Symptomatic anemia Current Visit: Yes Status: Acute History Interval history: Patient was seen and evaluated this morning Patient did not have any shortness of breath Hospitalist Physical - Physical exam Narrative exam: Not in cardiopulmonary distress. The patient is morbidly obese. Vital signs as documented. Head exam is unremarkable. No scleral icterus . Neck is without jugular venous distension, thyromegaly, or carotid bruits. Lungs are clear to auscultation. Cardiac exam reveals regular rate and Rhythm. Abdominal exam reveals normal bowel sounds, nontender, no organomegaly. Extremities are nonedematous and both femoral and pedal pulses are normal. CAREER ADVISOR: Alert and oriented 3. No focal weakness. - Constitutional Vitals: Temp Pulse Resp BP Pulse Ox 98.4 F 91 H 18 119/57 98 12/04/20 03:06 12/04/20 03:06 12/04/20 06:10 12/04/20 03:06 12/04/20 03:06 General appearance: Present: no acute distress, well-nourished, other (Pale mucous membranes) HEART Score - HEART Score EKG: Non-specific Age: < 45 Troponin: Troponin T 0.020 ng/mL (0.00-0.029) 12/02/20 11:43 Troponin: < normal limit - Critical Actions Critical Actions: 0-3 pts:0.9-1.7%risk of adverse cardiac event.Candidate for discharge Results - Labs CBC & Chem 7: 12/04/20 06:40 12/04/20 06:40 Labs: Laboratory Last Values WBC 5.1 K/mm3 (4.5-11.0) 12/04/20 06:40 RBC 3.90 M/mm3 (3.65-5.03) 12/04/20 06:40 Hgb 7.6 gm/dl (10.1-14.3) L 12/04/20 06:40 Hct 25.4 % (30.3-42.9) L 12/04/20 06:40 MCV 65 fl (79-97) L 12/04/20 06:40 MCH 20 pg (28-32) L 12/04/20 06:40 MCHC 30 % (30-34) 12/04/20 06:40 RDW 30.4 % (13.2-15.2) H 12/04/20 06:40 Plt Count 309 K/mm3 (140-440) 12/04/20 06:40 Lymph % (Auto) 23.8 % (13.4-35.0) 12/02/20 09:33 Parker % (Auto) 8.6 % (0.0-7.3) H 12/02/20 09:33 Eos % (Auto) 1.1 % (0.0-4.3) 12/02/20 09:33 Baso % (Auto) 0.5 % (0.0-1.8) 12/02/20 09:33 Lymph # (Auto) 1.0 K/mm3 (1.2-5.4) L 12/02/20 09:33 Parker # (Auto) 0.4 K/mm3 (0.0-0.8) 12/02/20 09:33 Eos # (Auto) 0.0 K/mm3 (0.0-0.4) 12/02/20 09:33 Baso # (Auto) 0.0 K/mm3 (0.0-0.1) 12/02/20 09:33 Add Manual Diff Complete 12/04/20 06:40 Total Counted 100 12/04/20 06:40 Seg Neutrophils % 66.0 % (40.0-70.0) 12/02/20 09:33 Seg Neuts % (Manual) 74.0 % (40.0-70.0) H 12/04/20 06:40 Lymphocytes % (Manual) 25.0 % (13.4-35.0) 12/04/20 06:40 Monocytes % (Manual) 1.0 % (0.0-7.3) 12/04/20 06:40 Eosinophils % (Manual) 2.0 % (0.0-4.3) 12/03/20 06:25 Nucleated RBC % Not Reportable 12/04/20 06:40 Seg Neutrophils # 2.8 K/mm3 (1.8-7.7) 12/02/20 09:33 Seg Neutrophils # Man 3.8 K/mm3 (1.8-7.7) 12/04/20 06:40 Band Neutrophils # 0.0 K/mm3 12/04/20 06:40 Lymphocytes # (Manual) 1.3 K/mm3 (1.2-5.4) 12/04/20 06:40 Abs React Lymphs (Man) 0.0 K/mm3 12/04/20 06:40 Monocytes # (Manual) 0.1 K/mm3 (0.0-0.8) 12/04/20 06:40 Eosinophils # (Manual) 0.0 K/mm3 (0.0-0.4) 12/04/20 06:40 Basophils # (Manual) 0.0 K/mm3 (0.0-0.1) 12/04/20 06:40 Metamyelocytes # 0.0 K/mm3 12/04/20 06:40 Myelocytes # 0.0 K/mm3 12/04/20 06:40 Promyelocytes # 0.0 K/mm3 12/04/20 06:40 Blast Cells # 0.0 K/mm3 12/04/20 06:40 WBC Morphology Not Reportable 12/04/20 06:40 Hypersegmented Neuts Not Reportable 12/04/20 06:40 Hyposegmented Neuts Not Reportable 12/04/20 06:40 Hypogranular Neuts Not Reportable 12/04/20 06:40 Smudge Cells Not Reportable 12/04/20 06:40 Toxic Granulation Not Reportable 12/04/20 06:40 Toxic Vacuolation Not Reportable 12/04/20 06:40 Dohle Bodies Not Reportable 12/04/20 06:40 Pelger-Huet Anomaly Not Reportable 12/04/20 06:40 Frederick Rods Not Reportable 12/04/20 06:40 Platelet Estimate Consistent w auto 12/04/20 06:40 Clumped Platelets Not Reportable 12/04/20 06:40 Plt Clumps, EDTA Not Reportable 12/04/20 06:40 Large Platelets Not Reportable 12/04/20 06:40 Giant Platelets Not Reportable 12/04/20 06:40 Platelet Satelliting Not Reportable 12/04/20 06:40 Plt Morphology Comment Not Reportable 12/04/20 06:40 RBC Morphology Not Reportable 12/04/20 06:40 Dimorphic RBCs Not Reportable 12/04/20 06:40 Polychromasia Not Reportable 12/04/20 06:40 Hypochromasia 2+ 12/04/20 06:40 Poikilocytosis Not Reportable 12/04/20 06:40 Anisocytosis 3+ 12/04/20 06:40 Microcytosis 1+ 12/04/20 06:40 Macrocytosis Not Reportable 12/04/20 06:40 Spherocytes Not Reportable 12/04/20 06:40 Pappenheimer Bodies Not Reportable 12/04/20 06:40 Sickle Cells Not Reportable 12/04/20 06:40 Target Cells Not Reportable 12/04/20 06:40 Tear Drop Cells Rare 12/04/20 06:40 Ovalocytes Few 12/04/20 06:40 Helmet Cells Not Reportable 12/04/20 06:40 Perez-Linden Bodies Not Reportable 12/04/20 06:40 Windsor Rings Not Reportable 12/04/20 06:40 Montross Cells Not Reportable 12/04/20 06:40 Bite Cells Not Reportable 12/04/20 06:40 Crenated Cell Not Reportable 12/04/20 06:40 Elliptocytes Not Reportable 12/04/20 06:40 Acanthocytes (Spur) Not Reportable 12/04/20 06:40 Rouleaux Not Reportable 12/04/20 06:40 Hemoglobin C Crystals Not Reportable 12/04/20 06:40 Schistocytes Not Reportable 12/04/20 06:40 Malaria parasites Not Reportable 12/04/20 06:40 Catarino Bodies Not Reportable 12/04/20 06:40 Hem Pathologist Commnt No 12/04/20 06:40 D-Dimer 452.95 ng/mlDDU (0-234) H 12/02/20 12:23 Sodium 138 mmol/L (137-145) 12/04/20 06:40 Potassium 3.9 mmol/L (3.6-5.0) 12/04/20 06:40 Chloride 105.0 mmol/L (98-107) 12/04/20 06:40 Carbon Dioxide 23 mmol/L (22-30) 12/04/20 06:40 Anion Gap 14 mmol/L 12/04/20 06:40 BUN 4 mg/dL (7-17) L 12/04/20 06:40 Creatinine 0.6 mg/dL (0.6-1.2) 12/04/20 06:40 Estimated GFR > 60 ml/min 12/04/20 06:40 BUN/Creatinine Ratio 7 % 12/04/20 06:40 Glucose 97 mg/dL (65-100) 12/04/20 06:40 POC Glucose 92 mg/dL (70-105) 12/02/20 22:18 Calcium 7.8 mg/dL (8.4-10.2) L 12/04/20 06:40 Iron 30 ug/dL (37-170) L 12/02/20 22:51 TIBC 329 mcg/dL (250-450) 12/02/20 22:51 % Saturation 9.12 % 12/02/20 22:51 Transferrin 297 mg/dl (192-382) 12/02/20 22:51 Ferritin 17.6 ng/mL (10.0-200.0) 12/02/20 12:23 Total Bilirubin 0.50 mg/dL (0.1-1.2) 12/03/20 06:25 AST 14 units/L (5-40) 12/03/20 06:25 ALT 7 units/L (7-56) 12/03/20 06:25 Alkaline Phosphatase 58 units/L (35-129) 12/03/20 06:25 Lactate Dehydrogenase 409 units/L (91-180) H 12/02/20 12:23 Troponin T 0.020 ng/mL (0.00-0.029) 12/02/20 11:43 C-Reactive Protein 2.90 mg/dL (0.00-1.30) H 12/02/20 12:23 NT-Pro-B Natriuret Pep 532.0 pg/mL (0-450) H 12/02/20 11:43 Total Protein 6.4 g/dL (6.3-8.2) 12/03/20 06:25 Albumin 3.3 g/dL (3.9-5) L 12/03/20 06:25 Albumin/Globulin Ratio 1.1 % 12/03/20 06:25 Vitamin B12 293.0 pg/mL (211-911) 12/02/20 22:51 Procalcitonin < 0.05 ng/mL (<0.15) 12/02/20 12:23 Coronavirus (PCR) Negative (Negative) 12/02/20 Unknown Blood Type B POSITIVE 12/02/20 11:43 Antibody Screen Negative 12/02/20 11:43 Crossmatch See Detail 12/02/20 11:43 Microbiology: Microbiology 12/02/20 11:43 Peripheral/Venous Blood Culture - Preliminary NO GROWTH AFTER 48 HOURS 12/02/20 11:43 Peripheral/Venous Blood Culture - Preliminary NO GROWTH AFTER 48 HOURS Padilla/IV: Voiding Method Toilet Active Medications - Current Medications Current Medications: Generic Name Dose Route Start Last Admin Trade Name Freq PRN Reason Stop Dose Admin Acetaminophen 650 mg 12/03/20 06:20 12/04/20 06:10 Acetaminophen 325 Mg Tab PO 650 mg Q4H PRN Administration Pain MILD(1-3)/Fever >100.5/PEREZ Ferrous Sulfate 325 mg 12/04/20 08:19 12/04/20 13:35 Ferrous Sulfate 325 Mg Tab PO 325 mg TID RUBA Administration Azithromycin 500 mg in 250 mls @ 250 mls/hr 12/03/20 07:00 12/04/20 05:59 Zithromax/Ns IV 12/07/20 07:59 250 mls/hr Q24H RUBA Administration Ceftriaxone Sodium 2 gm in 100 mls @ 200 mls/hr 12/03/20 06:30 12/04/20 05:30 Rocephin/Ns 2 Gm/100 Ml IV 200 mls/hr Q24H RUBA Administration Protocol Multivitamins/Minerals 1 each 12/03/20 10:00 12/04/20 09:51 Calcium Carb/Vit D3/Minerals 600 Mg/800 Units Tab PO 1 each BID RUBA Administration Ondansetron HCl 4 mg 12/03/20 06:20 Ondansetron 4 Mg/2 Ml Inj IV Q8H PRN Nausea And Vomiting Sodium Chloride 10 ml 12/03/20 10:00 12/04/20 09:51 Sodium Chloride 0.9% 10 Ml Flush Syringe IV 10 ml BID RUBA Administration Sodium Chloride 10 ml 12/03/20 06:20 Sodium Chloride 0.9% 10 Ml Flush Syringe IV PRN PRN LINE FLUSH Nutrition/Malnutrition Assess - Dietary Evaluation Nutrition/Malnutrition Findings: Nutrition Notes Start: 12/03/20 08:58 Freq: Status: Active Protocol: Document 12/03/20 08:58 CW (Rec: 12/03/20 09:01 CW [id number]) Nutrition Notes Need for Assessment generated from: hog killer Initial or Follow up Brief Note Current Diagnosis Hypertension,Heart Failure Other Pertinent Diagnosis pneu, Covid PUI, anemia Current Diet Cardiac Diet Weight Status Obese Subjective/Other Information RN screen for skin risk.Jarrell score is 20. Pt reports eating well adn no loss of appetite. Food preferences noted. Burn Absent Trauma Absent GI Symptoms None Food Allergy No Current % PO Good (75-100%) Nutrition Intervention Revisit per MD consult or patient Sign Off request: Additional Comments S/O skin intact adn good intake
--- NOTE | 2020-12-04 21:28 | Event Note ---
Date: 12/04/20 Echocardiogram done today shows a dilated cardiomyopathy with left ventricular ejection fraction 25%. In some views, and echodensities shown in the distal anterior wall, may suggest the presence of intracavitary left ventricular thrombus, clinical correlation is recommended.
[2020-12-05] MEDS: cefTRIAXone/NS 2 GM/100 ML 2 GM/100 ML BAG IV SCH (06:04)
[2020-12-05] MEDS: AZITHROMYCIN/NS 500 MG/250 ML 500 MG/250 ML BAG IV SCH (06:13)
[2020-12-05] MEDS: FERROUS SULFATE 325 MG TAB PO SCH ×3 (09:14→23:26)
[2020-12-05] MEDS: CALCIUM CARB/VIT D3/MINERALS 600 MG/800 UNITS TAB PO SCH ×2 (09:14→23:26)
--- NOTE | 2020-12-05 10:12 | Discharge Summary ---
Providers - Providers Date of Admission: 12/02/20 12:19 Attending physician: ELVIS TRINIDAD MD 12/03/20 00:29 Consult to Physician [CONS] Routine Comment: Consulting Provider: NEPTALI HERNANDEZ Physician Instructions: Reason For Exam: severe anemia 12/04/20 13:53 Consult to Physician [CONS] Routine Comment: Consulting Provider: SCARLET ARRIETA Physician Instructions: Reason For Exam: v. tach Primary care physician: POST CLOSER Hospitalization Reason for admission: ANEMIA Condition: Stable Hospital course: 44-year-old female with history of hypertension, congestive heart failure right lower extremity DVT in the past and not on any anticoagulants comes to the ER for nasal congestion and nasal drip for 4 to 5 days. Patient has been having clear discharge from the nose and cough for 3 of mucoid sputum nasal congestion and wheezing. No fever. No chest pain. Feels tired and short of breath easily. No exposure to coronavirus. In the emergency room where work-up was hemoglobin was very low. Hemoglobin was 5.8 and hence the admission. While the H&P documented no increased vaginal bleed the patient states that her periods are less than wait longer about a week and 1/2 to 2 weeks. No hematemesis or melena. No NSAID intake. No history of sickle cell trait or sickle cell anemia. Hospital course Patient was admitted to the floor and transfused 2 units of blood and posttransfusion hemoglobin this morning was 7.6. Patient was stable and not on any oxygen. Patient states she has history of anemia long time ago. Anemia is low and patient was given iron sulfate and will be discharged with that. Chest x-ray showed bilateral pneumonia and patient was treated with IV antibiotics while inpatient and will be discharged with Levaquin for 5 days. Patient discharged home with advised to have follow-up with Dr. Leonard in a week. Patient was hemodynamically stable at the time of discharge. COVID-19 test was done and negative. Management plan was discussed in detail with the patient and was in agreement with the plan of care. Patient was initially discharged yesterday but prior to going home developed some beats of V. tach. Patient was evaluated by cardiology noted to have dilated cardiomyopathy with an EF of around 25%. Due to her severe anemia was noted not to be a candidate for anticoagulation at this time. No further clinical deterioration is noted no shortness of breath. Electrolytes are within normal limits. Patient will follow up with Dr. Leonard her primary care physician and also with toolmaker grade three outpatient. 12/03/2020 -Patient was transfused 2 units of blood and posttransfusion hemoglobin 7.4, GI consulted -COVID-19 test is pending; patient was not on oxygen -Patient is on antibiotic -Echo is pending -Patient has elevated D-dimer and bilateral Doppler ultrasound of the lower extremities was ordered 12/04/2020 -Patient was discharged with iron tablet and Levaquin, but while waiting to go home patient had 50 runs of V tach -Cardiology consult and will consult the discharge. 12/05: Patient anxious to be discharged wants to have all of her work-up ou tpatient. She is agreeable to get the ultrasound here in the hospital. I did discuss with her the need to determine the etiology of her anemia she verbalized understanding but wants to return to work as she feels she would lose her job if she does not go back on Saturday. I did reason to the whole process with her she is agreeable to follow with COLD ROLLING COORDINATOR outpatient she knows that this is not optimal but is the best that I can get from her at this time. She will await cardiology evaluation and a pelvic ultrasound prior to discharge. 12/06: JOHNNY done today showed more papillary muscle, no thrombosis, cardiology started on heart failure medications, patient advised to follow with cardiology. (1) Symptomatic anemia likely secondary to menorrhagia due to moderate to severe uterine fibroid (2) Hypertension (3) Bilateral pneumonia (4) Person under investigation for COVID-19 (5) CHF (congestive heart failure) Heart failure type: combined systolic and diastolic Heart failure chronicity: chronic Qualified Code(s): I50.42 - Chronic combined systolic (congestive) (6) Hypocalcemia (7) Intracavitary left ventricular thrombus (8) Dilated cardiomyopathy with EF 25% Disposition: TO HOME OR SELFCARE Final Discharge Diagnosis (Prints w/discharge instructions): Symptomatic anemia likely secondary to menorrhagia Time spent for discharge: 35 MINS Core Measure Documentation - Palliative Care Palliative Care/ Comfort Measures: Not Applicable - Core Measures Any of the following diagnoses?: none Exam - Physical Exam Narrative exam: VITAL SIGNS: Reviewed. GENERAL: The patient appears normally developed, obese vital signs as documented. HEAD: No signs of head trauma. EYES: Pupils are equal. Extraocular motions intact. EARS: Hearing grossly intact. MOUTH: Oropharynx is normal. NECK: No adenopathy, no JVD. CHEST: Chest with clear breath sounds bilaterally. No wheezes, rales, or rhonchi. CARDIAC: Regular rate and rhythm. S1 and S2, without murmurs, gallops, or rubs. VASCULAR: No Edema. Peripheral pulses normal and equal in all extremities. ABDOMEN: Soft, non tender and non distended. No rebound or guarding, and no masses palpated. Bowel Sounds normal. MUSCULOSKELETAL: Good range of motion of all major joints. Extremities without clubbing, cyanosis or edema. NEUROLOGIC EXAM: Alert and oriented x 3 No focal sensory or strength deficits. Speech normal. Follows commands. PSYCHIATRIC: Mood normal. SKIN: detail exam as documented in skin assessment - Constitutional Vitals: Temp Pulse Resp BP Pulse Ox 98.4 F 96 H 16 124/57 97 12/05/20 04:10 12/05/20 04:10 12/05/20 04:10 12/05/20 04:10 12/05/20 04:10 Plan Activity: advance as tolerated Diet: low fat Special Instructions: record daily weights, record daily BP diary Plan of Treatment: 1. Must follow with COLD ROLLING COORDINATOR 2 months follow-up with GI 3 months at primary care physician patient to evaluate for any thyroid abnormality and parathyroid disease. 4. Must lose weight For patient understands that this is paramount and must be done's risk of is significantly elevated if noncompliant. Follow up with: WELLINGTON WAGNER MD [Staff Physician] - 7 Days BRISSA HOPKINS MD [Staff Physician] - 7 Days PRIMARY CARE, [Primary Care Provider] - 7 Days SINAI LEONARD MD [Staff Physician] - 7 Days (Anemia work up) OVI PACK MD [Staff Physician] - 7 Days Prescriptions: Spironolactone [Aldactone] 25 mg PO QDAY #30 tablet Calcium Carb/Vit D3/Minerals [Caltrate Plus] 1 each PO BID #60 tablet carvediloL [Coreg] 3.125 mg PO BID #60 tablet Losartan [Cozaar] 50 mg PO QDAY #30 tablet Ferrous Sulfate [Feosol 325 MG tab] 325 mg PO TID #90 tablet levoFLOXacin [Levaquin] 750 mg PO QDAY #5 tablet
--- NOTE | 2020-12-05 11:23 | Progress Note ---
Assessment and Plan Assessment and plan: 44-year-old female with history of hypertension, congestive heart failure right lower extremity DVT in the past and not on any anticoagulants comes to the ER for nasal congestion and nasal drip for 4 to 5 days. Patient has been having clear discharge from the nose and cough for 3 of mucoid sputum nasal congestion and wheezing. No fever. No chest pain. Feels tired and short of breath easily. No exposure to coronavirus. In the emergency room where work-up was hemoglobin was very low. Hemoglobin was 5.8 and hence the admission. While the H&P documented no increased vaginal bleed the patient states that her periods are less than wait longer about a week and 1/2 to 2 weeks. No hematemesis or melena. No NSAID intake. No history of sickle cell trait or sickle cell anemia. Hospital course Patient was admitted to the floor and transfused 2 units of blood and posttransfusion hemoglobin this morning was 7.6. Patient was stable and not on any oxygen. Patient states she has history of anemia long time ago. Anemia is low and patient was given iron sulfate and will be discharged with that. Chest x-ray showed bilateral pneumonia and patient was treated with IV antibiotics w [facility] and will be discharged with Levaquin for 5 days. Patient discharged home with advised to have follow-up with Dr. Samson in a week. Patient was hemodynamically stable at the time of discharge. COVID-19 test was done and negative. Management plan was discussed in detail with the patient and was in agreement with the plan of care. Patient was initially discharged yesterday but prior to going home developed some beats of V. tach. Patient was evaluated by cardiology noted to have dilated cardiomyopathy with an EF of around 25%. Due to her severe anemia was noted not to be a candidate for anticoagulation at this time. No further clinical deterioration is noted no shortness of breath. Electrolytes are within normal limits. Patient will follow up with Dr. Samson her primary care physician and also with first press operator outpatient. 12/03/2020 -Patient was transfused 2 units of blood and posttransfusion hemoglobin 7.4, GI consulted -COVID-19 test is pending; patient was not on oxygen -Patient is on antibiotic -Echo is pending -Patient has elevated D-dimer and bilateral Doppler ultrasound of the lower extremities was ordered 12/04/2020 -Patient was discharged with iron tablet and Levaquin, but while waiting to go home patient had 50 runs of V tach -Cardiology consult and will consult the discharge. 12/05: Patient anxious to be discharged wants to have all of her work-up outpatient. She is agreeable to get the ultrasound here in the hospital. I did discuss with her the need to determine the etiology of her anemia she verbalized understanding but wants to return to work as she feels she would lose her job if she does not go back on Saturday. I did reason to the whole process with her she is agreeable to follow with SURGICAL MANAGER outpatient she knows that this is not optimal but is the best that I can get from her at this time. She will await cardiology evaluation and a pelvic ultrasound prior to discharge Reevaluation cardiology recommended the patient stays for a JOHNNY to properly evaluate findings on TTE. In the meantime will await results from the pelvic ul trasound. (1) Symptomatic anemia likely secondary to menorrhagia (2) Hypertension (3) Bilateral pneumonia (4) Person under investigation for COVID-19 (5) CHF (congestive heart failure) Heart failure type: combined systolic and diastolic Heart failure chronicity: chronic Qualified Code(s): I50.42 - Chronic combined systolic (congestive) (6) Hypocalcemia (7) Intracavitary left ventricular thrombus (8) Dialated cardiomyopathy with EF 25% (9) menorrhagia History Interval history: Patient seen and examined no new complaints at this time. Hospitalist Physical - Physical exam Narrative exam: VITAL SIGNS: Reviewed. GENERAL: The patient appears normally developed, obese vital signs as documented. HEAD: No signs of head trauma. EYES: Pupils are equal. Extraocular motions intact. EARS: Hearing grossly intact. MOUTH: Oropharynx is normal. NECK: No adenopathy, no JVD. CHEST: Chest with clear breath sounds bilaterally. No wheezes, rales, or rhonchi. CARDIAC: Regular rate and rhythm. S1 and S2, without murmurs, gallops, or rubs. VASCULAR: No Edema. Peripheral pulses normal and equal in all extremities. ABDOMEN: Soft, non tender and non distended. No rebound or guarding, and no masses palpated. Bowel Sounds normal. MUSCULOSKELETAL: Good range of motion of all major joints. Extremities without clubbing, cyanosis or edema. NEUROLOGIC EXAM: Alert and oriented x 3 No focal sensory or strength deficits. Speech normal. Follows commands. PSYCHIATRIC: Mood normal. SKIN: detail exam as documented in skin assessment - Constitutional Vitals: Temp Pulse Resp BP Pulse Ox 98.4 F 96 H 16 124/57 97 12/05/20 04:10 12/05/20 04:10 12/05/20 04:10 12/05/20 04:10 12/05/20 04:10 General appearance: Present: no acute distress, well-nourished, other (Pale mucous membranes) HEART Score - HEART Score EKG: Non-specific Age: < 45 Troponin: Troponin T 0.020 ng/mL (0.00-0.029) 12/02/20 11:43 Troponin: < normal limit - Critical Actions Critical Actions: 0-3 pts:0.9-1.7%risk of adverse cardiac event.Candidate for discharge Results - Labs CBC & Chem 7: 12/04/20 06:40 12/04/20 06:40 Labs: Laboratory Last Values WBC 5.1 K/mm3 (4.5-11.0) 12/04/20 06:40 RBC 3.90 M/mm3 (3.65-5.03) 12/04/20 06:40 Hgb 7.6 gm/dl (10.1-14.3) L 12/04/20 06:40 Hct 25.4 % (30.3-42.9) L 12/04/20 06:40 MCV 65 fl (79-97) L 12/04/20 06:40 MCH 20 pg (28-32) L 12/04/20 06:40 MCHC 30 % (30-34) 12/04/20 06:40 RDW 30.4 % (13.2-15.2) H 12/04/20 06:40 Plt Count 309 K/mm3 (140-440) 12/04/20 06:40 Lymph % (Auto) 23.8 % (13.4-35.0) 12/02/20 09:33 Conway % (Auto) 8.6 % (0.0-7.3) H 12/02/20 09:33 Eos % (Auto) 1.1 % (0.0-4.3) 12/02/20 09:33 Baso % (Auto) 0.5 % (0.0-1.8) 12/02/20 09:33 Lymph # (Auto) 1.0 K/mm3 (1.2-5.4) L 12/02/20 09:33 Conway # (Auto) 0.4 K/mm3 (0.0-0.8) 12/02/20 09:33 Eos # (Auto) 0.0 K/mm3 (0.0-0.4) 12/02/20 09:33 Baso # (Auto) 0.0 K/mm3 (0.0-0.1) 12/02/20 09:33 Add Manual Diff Complete 12/04/20 06:40 Total Counted 100 12/04/20 06:40 Seg Neutrophils % 66.0 % (40.0-70.0) 12/02/20 09:33 Seg Neuts % (Manual) 74.0 % (40.0-70.0) H 12/04/20 06:40 Lymphocytes % (Manual) 25.0 % (13.4-35.0) 12/04/20 06:40 Monocytes % (Manual) 1.0 % (0.0-7.3) 12/04/20 06:40 Eosinophils % (Manual) 2.0 % (0.0-4.3) 12/03/20 06:25 Nucleated RBC % Not Reportable 12/04/20 06:40 Seg Neutrophils # 2.8 K/mm3 (1.8-7.7) 12/02/20 09:33 Seg Neutrophils # Man 3.8 K/mm3 (1.8-7.7) 12/04/20 06:40 Band Neutrophils # 0.0 K/mm3 12/04/20 06:40 Lymphocytes # (Manual) 1.3 K/mm3 (1.2-5.4) 12/04/20 06:40 Abs React Lymphs (Man) 0.0 K/mm3 12/04/20 06:40 Monocytes # (Manual) 0.1 K/mm3 (0.0-0.8) 12/04/20 06:40 Eosinophils # (Manual) 0.0 K/mm3 (0.0-0.4) 12/04/20 06:40 Basophils # (Manual) 0.0 K/mm3 (0.0-0.1) 12/04/20 06:40 Metamyelocytes # 0.0 K/mm3 12/04/20 06:40 Myelocytes # 0.0 K/mm3 12/04/20 06:40 Promyelocytes # 0.0 K/mm3 12/04/20 06:40 Blast Cells # 0.0 K/mm3 12/04/20 06:40 WBC Morphology Not Reportable 12/04/20 06:40 Hypersegmented Neuts Not Reportable 12/04/20 06:40 Hyposegmented Neuts Not Reportable 12/04/20 06:40 Hypogranular Neuts Not Reportable 12/04/20 06:40 Smudge Cells Not Reportable 12/04/20 06:40 Toxic Granulation Not Reportable 12/04/20 06:40 Toxic Vacuolation Not Reportable 12/04/20 06:40 Dohle Bodies Not Reportable 12/04/20 06:40 Pelger-Huet Anomaly Not Reportable 12/04/20 06:40 Frederick Rods Not Reportable 12/04/20 06:40 Platelet Estimate Consistent w auto 12/04/20 06:40 Clumped Platelets Not Reportable 12/04/20 06:40 Plt Clumps, EDTA Not Reportable 12/04/20 06:40 Large Platelets Not Reportable 12/04/20 06:40 Giant Platelets Not Reportable 12/04/20 06:40 Platelet Satelliting Not Reportable 12/04/20 06:40 Plt Morphology Comment Not Reportable 12/04/20 06:40 RBC Morphology Not Reportable 12/04/20 06:40 Dimorphic RBCs Not Reportable 12/04/20 06:40 Polychromasia Not Reportable 12/04/20 06:40 Hypochromasia 2+ 12/04/20 06:40 Poikilocytosis Not Reportable 12/04/20 06:40 Anisocytosis 3+ 12/04/20 06:40 Microcytosis 1+ 12/04/20 06:40 Macrocytosis Not Reportable 12/04/20 06:40 Spherocytes Not Reportable 12/04/20 06:40 Pappenheimer Bodies Not Reportable 12/04/20 06:40 Sickle Cells Not Reportable 12/04/20 06:40 Target Cells Not Reportable 12/04/20 06:40 Tear Drop Cells Rare 12/04/20 06:40 Ovalocytes Few 12/04/20 06:40 Helmet Cells Not Reportable 12/04/20 06:40 Perez-Polk Bodies Not Reportable 12/04/20 06:40 [place] Rings Not Reportable 12/04/20 06:40 Sin Cells Not Reportable 12/04/20 06:40 Bite Cells Not Reportable 12/04/20 06:40 Crenated Cell Not Reportable 12/04/20 06:40 Elliptocytes Not Reportable 12/04/20 06:40 Acanthocytes (Spur) Not Reportable 12/04/20 06:40 Rouleaux Not Reportable 12/04/20 06:40 Hemoglobin C Crystals Not Reportable 12/04/20 06:40 Schistocytes Not Reportable 12/04/20 06:40 Malaria parasites Not Reportable 12/04/20 06:40 Catarino Bodies Not Reportable 12/04/20 06:40 Hem Pathologist Commnt No 12/04/20 06:40 D-Dimer 452.95 ng/mlDDU (0-234) H 12/02/20 12:23 Sodium 138 mmol/L (137-145) 12/04/20 06:40 Potassium 3.9 mmol/L (3.6-5.0) 12/04/20 06:40 Chloride 105.0 mmol/L (98-107) 12/04/20 06:40 Carbon Dioxide 23 mmol/L (22-30) 12/04/20 06:40 Anion Gap 14 mmol/L 12/04/20 06:40 BUN 4 mg/dL (7-17) L 12/04/20 06:40 Creatinine 0.6 mg/dL (0.6-1.2) 12/04/20 06:40 Estimated GFR > 60 ml/min 12/04/20 06:40 BUN/Creatinine Ratio 7 % 12/04/20 06:40 Glucose 97 mg/dL (65-100) 12/04/20 06:40 POC Glucose 92 mg/dL (70-105) 12/02/20 22:18 Calcium 7.8 mg/dL (8.4-10.2) L 12/04/20 06:40 Iron 30 ug/dL (37-170) L 12/02/20 22:51 TIBC 329 mcg/dL (250-450) 12/02/20 22:51 % Saturation 9.12 % 12/02/20 22:51 Transferrin 297 mg/dl (192-382) 12/02/20 22:51 Ferritin 17.6 ng/mL (10.0-200.0) 12/02/20 12:23 Total Bilirubin 0.50 mg/dL (0.1-1.2) 12/03/20 06:25 AST 14 units/L (5-40) 12/03/20 06:25 ALT 7 units/L (7-56) 12/03/20 06:25 Alkaline Phosphatase 58 units/L (35-129) 12/03/20 06:25 Lactate Dehydrogenase 409 units/L (91-180) H 12/02/20 12:23 Troponin T 0.020 ng/mL (0.00-0.029) 12/02/20 11:43 C-Reactive Protein 2.90 mg/dL (0.00-1.30) H 12/02/20 12:23 NT-Pro-B Natriuret Pep 532.0 pg/mL (0-450) H 12/02/20 11:43 Total Protein 6.4 g/dL (6.3-8.2) 12/03/20 06:25 Albumin 3.3 g/dL (3.9-5) L 12/03/20 06:25 Albumin/Globulin Ratio 1.1 % 12/03/20 06:25 Vitamin B12 293.0 pg/mL (211-911) 12/02/20 22:51 Procalcitonin < 0.05 ng/mL (<0.15) 12/02/20 12:23 Coronavirus (PCR) Negative (Negative) 12/02/20 Unknown Blood Type B POSITIVE 12/02/20 11:43 Antibody Screen Negative 12/02/20 11:43 Crossmatch See Detail 12/02/20 11:43 Microbiology: Microbiology 12/02/20 11:43 Peripheral/Venous Blood Culture - Preliminary NO GROWTH AFTER 48 HOURS 12/02/20 11:43 Peripheral/Venous Blood Culture - Preliminary NO GROWTH AFTER 48 HOURS Padilla/IV: Voiding Method Toilet Active Medications - Current Medications Current Medications: Generic Name Dose Route Start Last Admin Trade Name Freq PRN Reason Stop Dose Admin Acetaminophen 650 mg 12/03/20 06:20 12/04/20 06:10 Acetaminophen 325 Mg Tab PO 650 mg Q4H PRN Administration Pain MILD(1-3)/Fever >100.5/PEREZ Ferrous Sulfate 325 mg 12/04/20 08:19 12/05/20 09:14 Ferrous Sulfate 325 Mg Tab PO 325 mg TID RUBA Administration Azithromycin 500 mg in 250 mls @ 250 mls/hr 12/03/20 07:00 12/05/20 06:13 Zithromax/Ns IV 12/07/20 07:59 250 mls/hr Q24H RUBA Administration Ceftriaxone Sodium 2 gm in 100 mls @ 200 mls/hr 12/03/20 06:30 12/05/20 06:04 Rocephin/Ns 2 Gm/100 Ml IV 200 mls/hr Q24H RUBA Administration Protocol Multivitamins/Minerals 1 each 12/03/20 10:00 12/05/20 09:14 Calcium Carb/Vit D3/Minerals 600 Mg/800 Units Tab PO 1 each BID RUBA Administration Ondansetron HCl 4 mg 12/03/20 06:20 Ondansetron 4 Mg/2 Ml Inj IV Q8H PRN Nausea And Vomiting Sodium Chloride 10 ml 12/03/20 10:00 12/05/20 09:14 Sodium Chloride 0.9% 10 Ml Flush Syringe IV 10 ml BID RUBA Administration Sodium Chloride 10 ml 12/03/20 06:20 Sodium Chloride 0.9% 10 Ml Flush Syringe IV PRN PRN LINE FLUSH Nutrition/Malnutrition Assess - Dietary Evaluation Nutrition/Malnutrition Findings: Nutrition Notes Start: 12/03/20 08:58 Freq: Status: Active Protocol: Document 12/03/20 08:58 SONNY (Rec: 12/03/20 09:01 [id number]) Nutrition Notes Need for Assessment generated from: security control room officer Initial or Follow up Brief Note Current Diagnosis Hypertension,Heart Failure Other Pertinent Diagnosis pneu, Covid PUI, anemia Current Diet Cardiac Diet Weight Status Obese Subjective/Other Information RN screen for skin risk.Jarrell score is 20. Pt reports eating well adn no loss of appetite. Food preferences noted. Burn Absent Trauma Absent GI Symptoms None Food Allergy No Current % PO Good (75-100%) Nutrition Intervention Revisit per MD consult or patient Sign Off request: Additional Comments S/O skin intact adn good intake
--- NOTE | 2020-12-05 12:27 | Consultation ---
History of Present Illness Consult date: 12/05/20 Consult reason: arrhythmia, congestive heart failure History of present illness: The patient is a 45-year-old woman who presented to the hospital with major complaints of an upper respiratory infection and seasonal allergies. While in the emergency room, her routine laboratories showed a severe anemia with a hematocrit of 20, compared with her previous baseline of 30. She was admitted for anemia work-up and COVID-19 observation. Her Covid test was eventually negative. While under telemetry monitoring, she was noted with a short burst of nonsustained ventricular tachycardia. The telemetry strip from this event not available in the chart for my review, but it resulted in the patient been ordered for an echocardiogram. The echocardiogram done yesterday showed a dilated cardiomyopathy with left ventricular ejection fraction 25%. In addition, there was an echodensity measuring 2.1 cm in diameter, associated with the distal anterior wall of the left ventricle, suggesting papillary muscle versus intracavitary thrombus. The patient's cardiomyopathy is of uncertain chronicity, she has no prior history. 3 years ago, she was treated in this hospital for venous thromboembolism, at that time a cardiology consultation was also requested for nonsustained ventricular tachycardia on telemetry monitoring. An echocardiogram has been recommended by the codifier at that time but there is no available record of the previous echocardiogram. At this time, patient is comfortable, awake and alert, comfortable in no acute distress. She reports that her anemia is chronic and attributed to her history of excessive uterine bleeding and long menstrual periods. EKG on this presentation is normal sinus rhythm, chronic right bundle branch block, no ST or T wave changes of ischemia. Past History Past Medical History: anemia, DVT, hypertension Medications and Allergies Allergies Allergy/AdvReac Type Severity Reaction Status Date / Time No Known Allergies Allergy Verified 08/22/17 02:04 Home Medications Medication Instructions Recorded Confirmed Last Taken Type Ferrous Sulfate [Feosol 325 MG tab] 325 mg PO TID #90 tablet 12/04/20 Unknown Rx levoFLOXacin [Levaquin] 750 mg PO QDAY #5 tablet 12/04/20 Unknown Rx Calcium Carb/Vit D3/Minerals 1 each PO BID #60 tablet 12/05/20 Unknown Rx [Caltrate Plus] carvediloL [Coreg] 3.125 mg PO BID #60 tablet 12/05/20 Unknown Rx Active Meds: Active Medications Acetaminophen (Acetaminophen 325 Mg Tab) 650 mg PO Q4H PRN PRN Reason: Pain MILD(1-3)/Fever >100.5/PEREZ Last Admin: 12/04/20 06:10 Dose: 650 mg Documented by: Ferrous Sulfate (Ferrous Sulfate 325 Mg Tab) 325 mg PO TID [facility] Last Admin: 12/05/20 09:14 Dose: 325 mg Documented by: Azithromycin (Zithromax/Ns) 500 mg in 250 mls @ 250 mls/hr IV Q24H [facility] Stop: 12/07/20 07:59 Last Admin: 12/05/20 06:13 Dose: 250 mls/hr Documented by: Ceftriaxone Sodium (Rocephin/Ns 2 Gm/100 Ml) 2 gm in 100 mls @ 200 mls/hr IV Q24H [facility]; Protocol Last Admin: 12/05/20 06:04 Dose: 200 mls/hr Documented by: Multivitamins/Minerals (Calcium Carb/Vit D3/Minerals 600 Mg/800 Units Tab) 1 each PO BID [facility] Last Admin: 12/05/20 09:14 Dose: 1 each Documented by: Ondansetron HCl (Ondansetron 4 Mg/2 Ml Inj) 4 mg IV Q8H PRN PRN Reason: Nausea And Vomiting Sodium Chloride (Sodium Chloride 0.9% 10 Ml Flush Syringe) 10 ml IV BID [facility] Last Admin: 12/05/20 09:14 Dose: 10 ml Documented by: Sodium Chloride (Sodium Chloride 0.9% 10 Ml Flush Syringe) 10 ml IV PRN PRN PRN Reason: LINE FLUSH Review of Systems Cardiovascular: no chest pain, no orthopnea, no palpitations, no rapid/irregular heart beat, no edema, no syncope, no lightheadedness, no shortness of breath Physical Examination Vital Signs Temp Pulse Resp BP Pulse Ox 99.2 F 111 H 16 149/86 97 12/02/20 07:47 12/02/20 07:47 12/02/20 07:47 12/02/20 07:47 12/02/20 07:47 General appearance: no acute distress HEENT: Positive: PERRL Neck: Positive: neck supple Cardiac: Positive: Reg Rate and Rhythm Lungs: Positive: clear to auscultation Neuro: Positive: Grossly Intact Abdomen: Positive: Soft Female genitourinary: deferred Skin: Positive: Clear Extremities: Absent: edema Results 12/04/20 06:40 12/04/20 06:40 EKG interpretations - Telemetry EKG Rhythm: Sinus Rhythm (With chronic right bundle branch block) Assessment and Plan - Patient Problems (1) Left ventricular thrombus Current Visit: Yes Status: Acute Plan to address problem: The patient's echocardiogram shows an echodensity that suggests either papillary muscle or left ventricular thrombus. Due to the severe anemia, patient is not a good candidate for oral anticoagulation or oral antiplatelet therapy, until anemia is optimally evaluated and treated by [facility]. For further assessment of the echodensity we will recommend JOHNNY imaging, and further recommendations will follow. Patient will also be started at this time on guideline directed medical therapy for left ventricular systolic failure. (2) Dilated cardiomyopathy Current Visit: Yes Status: Acute Plan to address problem: Guideline directed medical therapy to include losartan, carvedilol, spi ronolactone.
[2020-12-05] MEDS: carvediloL 6.25 MG TAB PO SCH ×2 (13:17→23:26)
[2020-12-05] MEDS: LOSARTAN 50 MG TAB PO SCH (13:17)
[2020-12-05] MEDS: SPIRONOLACTONE 25 MG TAB PO SCH (13:17)
--- NOTE | 2020-12-05 15:11 | Ultrasound Report ---
ULTRASOUND PELVIS COMPLETE ULTRASOUND TRANSVAGINAL INDICATION / CLINICAL INFORMATION: MENORRHAGIA. TECHNIQUE: Transabdominal and Transvaginal. Duplex Color Doppler used: Yes. COMPARISON: None available FINDINGS: UTERUS: Present. - Appearance (if present): Enlarged and heterogeneous with multiple fibroids. - Size in cm (if present): 15.6 x 10.6 x 11.6. - Endometrial Complex (if present): No significant abnormality.. Thickness in cm (if measured) = 0.7 - Mass lesions: Multiple uterine fibroids are identified many of which contain focal calcifications a nd submucosal component. The largest fibroid measures 8.4 cm in the uterine fundus. A posterior wall fibroid measures 3.4 cm. An anterior wall fibroid measures 3.5 cm. The left lateral wall fibroid jurgen ures 3.5 cm. - Additional findings: 1 cm nabothian cyst in the posterior cervix. RIGHT ADNEXA: The right ovary is not visualized. LEFT ADNEXA: No significant ovarian cyst or mass. Normal color Doppler blood flow. The left ovary concepcion sures 2.5 x 1.8 x 1.3 cm. URINARY BLADDER: No significant abnormality. FREE FLUID: None. ADDITIONAL FINDINGS: None. IMPRESSION: Moderate to severe uterine fibroid disease as described. The right ovary is not visualized. The left ovary is unremarkable. Signer Name: Anthony Strong Jr, MD Signed: 12/05/2020 3:07 PM Workstation Name: [id number]
[2020-12-06] MEDS: cefTRIAXone/NS 2 GM/100 ML 2 GM/100 ML BAG IV SCH (06:07)
[2020-12-06] MEDS ORDERED: propofoL 200 MG/20 ML VIAL IV ONE ×2 (07:24)
[2020-12-06] MEDS ORDERED: BENZOCAINE 20% TOP SPRAY 0.5 ML UNIT DOSE MM NR (08:00)
--- NOTE | 2020-12-06 08:49 | Anesthesia Day of Surgery ---
Anesthesia Day of Surgery - Day of Surgery Patient Examined: Yes Patient H&P Reviewed: Yes Patient is NPO: Yes
--- NOTE | 2020-12-06 08:49 | Anesthesia Consultation ---
Anesthesia Consult and Med Hx Date of service: 12/06/20 - Airway Anesthetic Teeth Evaluation: Good ROM Head & Neck: Adequate Mental/Hyoid Distance: Adequate Mallampati Class: Class III Intubation Access Assessment: Possibly Difficult - Pre-Operative Health Status ASA Pre-Surgery Classification: ASA3 Proposed Anesthetic Plan: MAC - Pulmonary Hx Respiratory Symptoms: No - Cardiovascular System Hx Hypertension: Yes Hx Heart Attack/AMI: No (EF 25-30%) Hx Percutaneous Transluminal Coronary Angioplasty (PTCA): No Hx Cardia Arrhythmia: Yes (ocassional runs of V-tach, chronic RBBB) Hx Pacemaker: No Hx Internal Defibrillator: No - Central Nervous System CVA: No - Endocrine Hx Renal Disease: No Hx Liver Disease: No Hx Insulin Dependent Diabetes: No Hx Non-Insulin Dependent Diabetes: No Hx Thyroid Disease: No - Other Systems Hx Obesity: Yes (BMI 39) - Additional Comments Anesthesia Medical History Comments: Hx DVT. Concern for possible LV thrombus on TTE now scheduled for JOHNNY.
--- NOTE | 2020-12-06 09:10 | Post Anesthesia Evaluation ---
- Post Anesthesia Evaluation Patient Participated: Yes Airway Patent: Yes Stable Respiratory Function: Yes Nausea/Vomiting: No Temp > 96.8F: Yes Pain Manageable: Yes Adequeate Hydration: Yes Anesthesia Complications: No
[2020-12-06] MEDS: FERROUS SULFATE 325 MG TAB PO SCH ×2 (10:25→13:12)
[2020-12-06] MEDS: LOSARTAN 50 MG TAB PO SCH (10:25)
[2020-12-06] MEDS: CALCIUM CARB/VIT D3/MINERALS 600 MG/800 UNITS TAB PO SCH (10:26)
[2020-12-06] MEDS: carvediloL 6.25 MG TAB PO SCH (10:26)
[2020-12-06] MEDS: SPIRONOLACTONE 25 MG TAB PO SCH (10:26)
[2020-12-06 15:32] VITALS: BP 159/80
== END 2020-12-06 16:20 | disposition home or self-care (01) ==
LOC: ED 07:40 → 3A 12:19
PROVIDERS: ADMIT Internal Medicine; ATTEND Internal Medicine
DX: D64.9 Anemia, unspecified (principal); Z20.822 Contact with and (suspected) exposure to COVID-19; I11.0 Hypertensive heart disease with heart failure; I50.9 Heart failure, unspecified; J18.9 Pneumonia, unspecified organism; E83.51 Hypocalcemia; N92.0 Excessive and frequent menstruation with regular cycle; I49.9 Cardiac arrhythmia, unspecified; I21.9 Acute myocardial infarction, unspecified; I42.0 Dilated cardiomyopathy; Z98.890 Other specified postprocedural states; Z86.718 Personal history of other venous thrombosis and embolism
CPT/HCPCS: 36415; 36430; 71046; 76830; 76856; 80048; 80053; 82607; 82728; 82747; 82947; 82962; 83550; 83615; 83880; 84145; 84439; 84443; 84484; 85025; 85027; 85379; 86140; 86850; 86900; 86901; 86920; 87040; 93005; 93306; 93312; 93320; 93325; 93970; 96365; 96366; 96367; 96368; 99285; G0378; J0456; J0610; J0696; J2704; J7040; P9016; U0003; 85007